=== PATIENT | female | born 1995 | race African-American/Black ===

== ENCOUNTER → 2023-05-05 10:43 | Outpatient (BNVA) | payer OTHER, SELFPAY | PROVIDERS: PCP Internal Medicine; Visit Provider Physician Assistant Surgical ==

== ENCOUNTER 2023-06-02 11:03 | Outpatient (REF) | payer OTHER, SELFPAY ==
[2023-06-07 12:42] LABS: H Pylori Breath Test Negative (Negative)
== END 2023-06-02 11:04 | disposition home or self-care (01) ==
LOC: HO.LNP 11:03
PROVIDERS: PCP Internal Medicine; Visit Provider Physician Assistant
DX: Z01.818 Encounter for other preprocedural examination (principal); E66.01 Morbid (severe) obesity due to excess calories; R06.83 Snoring; R40.0 Somnolence; Z71.3 Dietary counseling and surveillance
CPT/HCPCS: 83013; 99202; 99211

== ENCOUNTER 2023-06-02 11:03 | Outpatient (AMB) | payer OTHER, SELFPAY ==
[2023-06-02 11:05] VITALS: BP 133/75; PULSE 83; TEMP 35.9; O2SAT 98; BMI 61.8
--- NOTE | 2023-06-02 11:05 | A.OFFVIS_ITS ---
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 Her goal is to be healthy and happy. She reports first being concerned about her weight since teenage years, ETHAN 5 She has tried multiple methods of weight loss including diets and portion control without permanent results. She lives with her 3 childen. She works 3 days per week FT - 7pm - 7:30 am. 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 She wakes at: 6-7 am if not working, bed at 3am - only sleep 3-4 hours on these nights. Work nights - sleeps from 9am - 2pm - 5 hours sleep. Somedays doesnt sleep at all Breakfast: no regular meals until dinner time.12 pm- fruit and junk. water and cranberry juice Lunch: snacks throughout the day Dinner: has a meal 3 d/week. Kids eats at 5-7pm. Will eat 11pm - sandwich, noodles, sausage. After dinner: snacks during the night Other snacks: snacks all day long Liquids: Sprite sometimes, juice everyday Alcohol intake: every other weekend, drinks 2 d/week - will have 2 glasses wine during the week then 5 mixed drinks per day. tobacco: none, marijuana: once every few months Drinks coffee only on days at work - usually once per shift+ Exercise: none Last mammogram: never Last pap smear: 2022 control method: IUD ETHAN: 5 - not in therapy ESS: 16 GERD: 0 QOL:121 PFSH Surgical History (Updated 06/02/23 @ 11:27 by Niesha Harrison PA-C) Hx of section Hx of cholecystectomy Family History Mother No problems noted. Father Diabetes Sister No problems noted. Sister No problems noted. Brother Hx of sleep apnea Brother Hx of sleep apnea Diabetes Sister Diabetes Sister No problems noted. Sister No problems noted. Sister No problems noted. Sister No problems noted. Sister No problems noted. Daughter No problems noted. Daughter No problems noted. Son No problems noted. Social History (Updated 05/05/23 @ 11:09 by Adriana Romero [facility]) Alcohol intake: current Alcohol intake frequency: holidays/special occasions only Patient Tobacco Use Status: Never used Tobacco Physical Exam Const General: cooperative, no acute distress and well developed Nutritional Appearance: obese Orientation/consciousness: patient oriented x3 HEENT Head: Yes normal to inspection Neck Neck: Yes normal visual inspection Thyroid: Thyroid normal Resp Effort & Inspection: normal respiratory effort Auscultation: clear to auscultation bilaterally Cardio Rate: regular rate Rhythm: regular rhythm Heart sounds: S1 normal heart sound present, S2 normal heart sound present and no murmurs GI Inspection: No distended and Yes obesity Palpation (GI): Soft to palpation, nontender and no guarding Skin General skin exam: no rashes or lesions noted and other (warm and dry) Wounds: no wounds Hair: normal Neuro General: patient oriented x3 Extrem General: Yes no pedal edema and Yes no calf tenderness Psych Attitude: cooperative Thought process: Normal thought process present Thought content: Normal thought content present Insight: Good insight present (Psych) Judgement: Good judgement present (Psych) Assessment & Plan Assessment & Plan (1) Morbid obesity: Code(s): E66.01 - Morbid (severe) obesity due to excess calories Plan: This is a 27 yo woman with morbid obesity who will start SWL program to prepare for bariatric surgery. Blood work, h pylori have been ordered. She is being scheduled for RD and BH initial consultations. She will start SWL classes and watch at 3 classes before her next appt with Lara. Sleep Study ordered Patient is aware she will need to make many lifestyle changes befroe being ready for baritric surgery. 1. Adequate sleep of 7-8 hours per night discussed - is a MUST that she get adequate seep 2. Healthy meal plan - stop skipping meals and stop all sweetened drinks and snacks. Needs a regualr schedule and dinner with her children All meals/MR's need to take 20 minutes to complete 2 hours after waking - 30 gram shake 2.5 hours later- 30 gram shake 2.5 hours later bar or yogurt 2-3 hrs later- dinner of 6 oz lean protein, 8 oz vegetable, 1 serving fruit 3 hours later bar or yogurt Will change times of day depending on work or non work schedules. Exercise - LS 1 mile vidoes 5 non-consecutive days to start The importance of avoiding and breast feeding for at least 18 months after bariatric surgery was discussed in the information session and was reinforced today. Pt will purchase body composition analyzer (recommended list given to patient) and weight herself weekly. Next appt with me in 3 weeks. Text me with any questions and weekly weights. Patient is morbidly obese and is not considered stable at this time.?I spent a total of 60 minutes reviewing/updating records, examining the patient and counseling the patient on weight management as detailed above. (2) Snoring: Code(s): R06.83 - Snoring (3) Daytime somnolence: Code(s): R40.0 - Somnolence Plan: SS ordered, ESS =16 Orders: Orders Vitamin B12 and Folate Today E66.01 - Morbid (severe) obesity due to excess calories, R06.83 - Snoring, R40.0 - Somnolence, Z01.818 - Encounter for other preprocedural examination Comprehensive Met. Panel Today E66.01 - Morbid (severe) obesity due to excess calories, R06.83 - Snoring, R40.0 - Somnolence, Z01.818 - Encounter for other preprocedural examination C Reactive Protein Today E66.01 - Morbid (severe) obesity due to excess calories, R06.83 - Snoring, R40.0 - Somnolence, Z01.818 - Encounter for other preprocedural examination Ferritin Today E66.01 - Morbid (severe) obesity due to excess calories, R06.83 - Snoring, R40.0 - Somnolence, Z01.818 - Encounter for other preprocedural examination Hemoglobin A1c Today E66.01 - Morbid (severe) obesity due to excess calories, R06.83 - Snoring, R40.0 - Somnolence, Z01.818 - Encounter for other preprocedural examination Insulin Today E66.01 - Morbid (severe) obesity due to excess calories, R06.83 - Snoring, R40.0 - Somnolence, Z01.818 - Encounter for other preprocedural examination IRON PROFILE Today E66.01 - Morbid (severe) obesity due to excess calories, R06.83 - Snoring, R40.0 - Somnolence, Z01.818 - Encounter for other preprocedural examination Lipid Panel Today E66.01 - Morbid (severe) obesity due to excess calories, R06.83 - Snoring, R40.0 - Somnolence, Z01.818 - Encounter for other preprocedural examination PTHI Today E66.01 - Morbid (severe) obesity due to excess calories, R06.83 - Snoring, R40.0 - Somnolence, Z01.818 - Encounter for other preprocedural examination TSH reflex Free T4 Today E66.01 - Morbid (severe) obesity due to excess calor ies, R06.83 - Snoring, R40.0 - Somnolence, Z01.818 - Encounter for other preprocedural examination Vitamin A Today E66.01 - Morbid (severe) obesity due to excess calories, R06.83 - Snoring, R40.0 - Somnolence, Z01.818 - Encounter for other preprocedural examination Vitamin B1 Today E66.01 - Morbid (severe) obesity due to excess calories, R06.83 - Snoring, R40.0 - Somnolence, Z01.818 - Encounter for other preprocedural examination Vitamin D 25-OH Total Today E66.01 - Morbid (severe) obesity due to excess calories, R06.83 - Snoring, R40.0 - Somnolence, Z01.818 - Encounter for other preprocedural examination Zinc Today E66.01 - Morbid (severe) obesity due to excess calories, R06.83 - Sn oring, R40.0 - Somnolence, Z01.818 - Encounter for other preprocedural examination Complete Blood Count Auto Diff Today E66.01 - Morbid (severe) obesity due to excess calories, R06.83 - Snoring, R40.0 - Somnolence, Z01.818 - Encounter for other preprocedural examination RT home sleep study Today E66.01 - Morbid (severe) obesity due to excess ca lories, R06.83 - Snoring, R40.0 - Somnolence, Z01.818 - Encounter for other preprocedural examination H Pylori Breath Test Today E66.01 - Morbid (severe) obesity due to excess calories, R06.83 - Snoring, R40.0 - Somnolence, Z01.818 - Encounter for other preprocedural examination Referrals Behavioral Health Referral E66.01 - Morbid (severe) obesity due to excess calories, R06.83 - Snoring, R40.0 - Somnolence, Z01.818 - Encounter for other preprocedural examination Nutrition/Dietitian Referral E66.01 - Morbid (severe) obesity due to excess calories, R06.83 - Snoring, R40.0 - Somnolence, Z01.818 - Encounter for other preprocedural examination Coding Level of Care Code New Pt Level 5 (30834) Diagnoses Morbid obesity E66.01 Snoring R06.83 Daytime somnolence R40.0
== END 2023-06-02 12:05 | disposition home or self-care (01) ==
PROVIDERS: PCP Internal Medicine; Visit Provider Physician Assistant
DX: E66.01 Morbid (severe) obesity due to excess calories (principal); Z68.44 Body mass index [BMI] 60.0-69.9, adult; R06.83 Snoring; R40.0 Somnolence
CPT/HCPCS: 99205

== ENCOUNTER → 2023-07-08 15:02 | Outpatient (REF) | payer OTHER, SELFPAY | LOC: HO.SL 15:02 | PROVIDERS: PCP Internal Medicine; Visit Provider Physician Assistant | DX: Z01.818 Encounter for other preprocedural examination (principal); R40.0 Somnolence; R06.83 Snoring; E66.01 Morbid (severe) obesity due to excess calories | CPT/HCPCS: 95806 ==

== ENCOUNTER → 2023-07-08 15:12 | Outpatient (BNV) | payer OTHER, SELFPAY | PROVIDERS: PCP Internal Medicine; Visit Provider Internal Medicine | DX: R06.83 Snoring (principal) | CPT/HCPCS: 95806 ==

== ENCOUNTER 2023-07-29 08:04 | Outpatient (AMB) | payer OTHER, SELFPAY ==
--- OUTSIDE RECORDS SUMMARY | 2023-07-29 08:06 | XMS_ITS | Continuity of Care Document ---
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 Name Role Phone Betina Pena MD Primary Care Physician Encounter [facility] [place] Date(s): 10/23/21 - 10/23/[address] [address]- Encounter Diagnosis Influenza A(Final) - 10/23/21 Discharge Disposition: A-D/C Home Attending Physician: Bryan Galindo MD Admitting Physician: Bryan Galindo MD Referring Physician: Not on Staff, Referring MD Allergies, Adverse Reactions, Alerts Substance Reaction Severity Status oxyCODONE Headache Nausea and vomiting Active Immunizations Given and Recorded Vaccine Date Status Refusal Reason tetanus/diphtheria/pertussis, acel(Tdap) 10/18/21 Given tetanus/diphtheria/pertussis, acel(Tdap) 10/25/19 Given tetanus/diphtheria/pertussis, acel(Tdap) 1 08/04/18 Given influenza virus vaccine, inactivated 12/09/19 Give n Not Given Vaccine Date Status Refusal Reason influenza virus vaccine, inactivated 08/28/18 Not Given Parent Or Guardian Refuses pneumococcal 23-valent vaccine 10/30/19 Not Given Patient Refuses 1Early/Late Reason: Other : pt preference Medications aspirin 81 mg oral tablet, chewable 162 mg, 2, tablet, Chew, Daily, # 60 tablet, Refills 6, Tot. Refills 6, Maintenance, 09/06/21 8:52:00 EDT, Route to Pharmacy Electronically, [facility]/pharmacy #[id number], Partial fill upon patient request if the prescription is for a schedule II opioid drug., 1... Start Date: 09/06/21 Status: Ordered aspirin 81 mg oral tablet, chewable 81 mg, 1, tablet, By Mouth, Daily, # 30 tablet, Refills 0, Tot. Refills 0, Maintenance, 08/13/21 9:23:00 EDT, Route to Pharmacy Electronically, [facility]/pharmacy #[id number], Partial fill upon patient request if the prescription is for a schedule II opioid drug.... Start Date: 08/13/21 Status: Ordered ferrous sulfate 325 mg oral tablet 1 tablet = 325 mg, By Mouth, 2 times a day, # 60 tablet, 0 Refills, Maintenance, 12/23/19 14:30:00 EST, [facility]/pharmacy #[id number], 158, cm, 12/23/19 9:36:00 EST, Height, 127.27, kg, 12/19/19 16:32:00 EST, Dry Weight Start Date: 12/23/19 Status: Ordered oseltamivir 75 mg oral capsule 1 capsule = 75 mg, By Mouth, Daily, for 5 days, # 5 capsule, 0 Refills, Acute 10/28/21 21:03:00 EST, 10/23/21 21:03:00 EST, Capsule, [facility]/pharmacy #[id number], Partial fill upon patient request if the prescription is for a schedule II opioid drug., 158, cm,... Start Date: 10/23/21 Stop Date: 10/28/21 Status: Ordered Multivitamins with Folic Acid 1 mg oral tablet 1 tablet, By Mouth, Daily, # 90 tablet, 3 Refills, Maintenance, 10/25/19 18:14:18 EST, Tablet, 1 tablet By Mouth Daily,x90 days, 157, cm, 10/25/19 15:12:06 EST, Height, 121.8, kg, 08/04/18 16:43:39 EDT, Dry Weight Start Date: 10/25/19 Stop Date: 10/19/20 Status: Ordered Reglan 5 mg oral tablet 1 tablet = 5 mg, By Mouth, 4 times a day, PRN Vomiting, # 40 tablet, 0 Refills, Maintenance, 08/22/21 16:18:00 EDT, Tablet, [facility]/pharmacy #[id number], Partial fill upon patient request if the prescription is for a schedule II opioid drug., 158, cm, 08/22/21... Start Date: 08/22/21 Status: Ordered Problem List Condition Effective Dates Status Health Status Inform ant Asthma --as a chiild(Confirmed) Active History of prior w ith IUGR (Confirmed) Active History of delivery - iatrogenic for IUGR/abnormal dopplers(Confirmed) Active History of gestational hypertension(Confirmed) Active Flu-- She declines this vaccine(Confirmed) Active Migraine(Confirmed) Active Obesity(Confirmed) Active COVID-19 virus detected Jul(Confirmed) Active Severe obesity(Confirmed) Active Results Radiology Reports * Exam Date Time Procedure Performing Provider Status 10/23/21 5:47 PM Chest 2 Views Frontal and Lat Desrosie r, Virgen; Auth (Verified) Notes: (Chest 2 Views Frontal and Lat) Reason For Exam: Chest Pain;Other: RESULT: Chest 2 Views Frontal and Lat Chest 2 Views Frontal and Lat HX OF PRESENT ILLNESS: pt woth headache congestion generalized weakness pt states that she feels like she has covid again; Reason: Chest Pain COMPARISON: 12/21/2019 FINDINGS: LINES AND TUBES: None. LUNGS AND PLEURA: Clear lungs. Normal pulmonary vascularity. No pleural effusion. No pneumothorax. HEART, MEDIASTINUM AND BELGICA: Heart is normal in size. Normal mediastinal and hilar contour. BONES AND SOFT TISSUES: No acute abnormality. IMPRESSION: No evidence of acute abnormality. WSN: [id number] Ordering Physician: Nicky Newberry Dictated By: Edgar Crisostomo MD Dictated Date/Time: 10/23/21 5:49 pm Reviewed By: Edgar Crisostomo MD Signed By: Edgar Crisostomo MD Signed Date/Time: 10/23/21 5:49 pm Transcribed By: REID Transcribed Date/Time: 10/23/21 5:48 pm Vital Signs Most recent to oldest [Reference Range]: 1 2 3 Height 158 cm (10/23/21 11:28 PM) 158 cm (10/23/21 7:14 PM) Weight 132.72 kg (10/23/21 11:28 PM) 132.72 kg (10/23/21 7:14 PM) Oxygen Saturation [94-100 %] 99 % (10/23/21 11:28 PM) 97 % (10/23/21 8:55 PM) 97 % (10/23/21 7:14 PM) Pulse Rate [55-90 bpm] 99 bpm *H* (10/23/21 11:28 PM) 118 bpm *H* (10/23/21 8:55 PM) 121 bpm *H* (10/23/21 7:14 PM) Blood Pressure [90-138/55-84 mm Hg] 124/72mm Hg (10/23/21 11:28 PM) 126/78mm Hg (10/23/21 8:55 PM) 117/69mm Hg (10/23/21 7:14 PM) Respiratory Rate [16-30 br/min] 18 br/min (10/23/21 11:28 PM) 20 br/min (10/23/21 8:55 PM) 22 br/min (10/23/21 7:14 PM) Temperature [96.8-100.4 DegF] 98.3 DegF (10/23/21 11:28 PM) 99.3 DegF (10/23/21 7:14 PM) 99.3 DegF (10/23/21 5:36 PM) Mode of Delivery (Oxygen) Room air (10/23/21 11:28 PM) Room air (10/23/21 8:55 PM) Room air (10/23/21 7:14 PM) Blood pressure sites Arm, left (10/23/21 8:55 PM) Arm, left (10/23/21 7:14 PM) Temperature Route Axillary (10/23/21 11:28 PM) Oral (10/23/21 7:14 PM) Oral (10/23/21 5:36 PM) Dry Weight 132.72 kg (10/23/21 11:28 PM) 132.72 kg (10/23/21 7:14 PM) Social History Social History Type Response Smoking Status Never (less than 100 in lifetime) entered on: 08/31/19 Sex Female
--- OUTSIDE RECORDS SUMMARY | 2023-07-29 08:06 | XMS_ITS | Continuity of Care Document ---
Author Name Unknown Organization [facility] Address [address] [place] [address]- Care Team Providers Care Manager Communication Name Role Phone Becky MARSH, Betina Johnson Primary Care Physician Encounter [facility] [place] Date(s): 04/13/20 - 05/13/[address] [address]- [facility] Attending Physician: Admtr, Ar8 Admitting Physician: Admtr, Ar8 Referring Physician: Admtr, Ar8 Allergies, Adverse Reactions, Alerts Substance Reaction Severity Status oxyCODONE Headache Nausea and vomiting Active Immunizations Given and Recorded Vaccine Date Status Refusal Reason influenza virus vaccine, inactivated 12/09/19 Give n tetanus/diphtheria/pertussis, acel(Tdap) 10/25/19 Given tetanus/diphtheria/pertussis, acel(Tdap) 1 08/04/18 Given Not Given Vaccine Date Status Refusal Reason influenza virus vaccine, inactivated 08/28/18 Not Given Parent Or Guardian Refuses pneumococcal 23-valent vaccine 10/30/19 Not Given Patient Refuses 1Early/Late Reason: Other : pt preference Medications ferrous sulfate 325 mg oral tablet 1 tablet = 325 mg, By Mouth, 2 times a day, # 60 tablet, 0 Refills, Maintenance, 12/23/19 14:30:00 EST, [facility]pharm[facility] #[id number], 158, cm, 12/23/19 9:36:00 EST, Height, 127.27, kg, 12/19/19 16:32:00 EST, Dry Weight Start Date: 12/23/19 Status: Ordered NIFEdipine 30 mg oral tablet, extended release 30 mg, 1, tablet, By Mouth, Daily, # 60 tablet, Refills 0, Tot. Refills 0, Maintenance, 12/23/19 10:46:00 EST, Route to Pharmacy Electronically, [facility]/pharmacy #[id number], 158, cm, 12/23/19 9:36:00 EST, Height, 127.27, kg, 12/19/19 16:32:00 EST, Dry Weight Start Date: 12/23/19 Status: Ordered Multivitamins with Folic Acid 1 mg oral tablet 1 tablet, By Mouth, Daily, # 90 tablet, 3 Refills, Maintenance, 10/25/19 18:14:18 EST, Tablet, 1 tablet By Mouth Daily,x90 days, 157, cm, 10/25/19 15:12:06 EST, Height, 121.8, kg, 08/04/18 16:43:39 EDT, Dry Weight Start Date: 10/25/19 Stop Date: 10/19/20 Status: Ordered Problem List Condition Effective Dates Status Health Status Inform ant Asthma(Confirmed) Active History of prior w ith IUGR (Confirmed) Active History of delivery - iatrogenic for IUGR/abnormal dopplers(Confirmed) Active History of gestational hypertension(Confirmed) Active Flu-- She declines this vaccine(Confirmed) Active Migraine(Confirmed) Active Obesity(Confirmed) Active Social History Social History Type Response Smoking Status Never (less than 100 in lifetime) entered on: 08/31/19 Sex Female
--- OUTSIDE RECORDS SUMMARY | 2023-07-29 08:06 | XMS_ITS | Continuity of Care Document ---
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 Role Phone Betina Pena MD Primary Care Physician Encounter [place] Date(s): 10/31/21 - 02/15/[address] [address] Attending Physician: Not on Staff, Attending MD Allergies, Adverse Reactions, Alerts Substance Reaction Severity Status oxyCODONE Headache Nausea and vomiting Active Immunizations Given and Recorded Vaccine Date Status Refusal Reason SARS-CoV-2 mRNA ([id number]) vax 01/13/22 Given tetanus/diphtheria/pertussis, acel(Tdap) 10/18/21 Given tetanus/diphtheria/pertussis, acel(Tdap) 10/25/19 [...] 09/06/21 8:52:00 EDT, Route to Pharmacy Electronically, [facility]/pharmacy #[id number], Partial fill upon patient request if the prescription is for a schedule II opioid drug., 1... Start Date: 10/15/21 Status: Ordered clindamycin 1% topical solution 1 application, Topically, 2 times a day, # 60 mL, 0 Refills, Maintenance, 01/07/22 14:35:00 EST, Solution, [facility]/pharmacy #[id number], Partial fill upon patient request if the prescription is for a schedule II opioid drug., 1 application Topically 2 times a d... Start Date: 01/07/22 Status: Ordered ferrous sulfate 325 mg oral [...] Asthma --as a chiild(Confirmed) Active History of section(Confirmed) Active History of prior w ith IUGR (Confirmed) Active History of delivery - iatrogenic for IUGR/abnormal dopplers(Confirmed) Active History of gestational hypertension(Confirmed) Active History of pre-eclampsia in prior , currently (Confirmed) Active History of COVID-19(Confirmed) Active Migraine(Confirmed) Active Obesity(Confirmed) Active Pre-eclampsia added to pre-e xisting hypertension(Confirmed) 1 01/10/22 Active HTN in , chronic(Confirmed) Active Severe obesity(Confirmed) Active 1Problem added by Discern Expert Social History Social History Type Response Smoking Status Never (less than 100 in lifetime) entered on: 08/31/19 Sex Female
--- OUTSIDE RECORDS SUMMARY | 2023-07-29 08:06 | XMS_ITS | Continuity of Care Document ---
Author Name Unknown Organization [facility] Address [address] [place] [address]- Care Team Providers Care Insurance Policy Issue Clerk Name Role Phone Betina Pena MD Primary Care Physician Encounter [facility] Date(s): 01/04/20 - 01/14/[address] [address]- [facility] Attending Physician: Artem Sparks Admitting Physician: Artem Sparks Referring Physician: AdmtrArtem Allergies, Adverse Reactions, Alerts Substance Reaction Severity [...] 12/23/19 10:46:00 EST, Route to Pharmacy Electronically, [facility]/pharmacy #[id number], 158, cm, 12/23/19 9:36:00 EST, [...] Status Health Status Inform ant Asthma(Confirmed) Active Echogenic focus of bowel of fetus affecting antepartum care of mother(Confirmed) Active IUGR, (Confirmed) Active History of prior w ith IUGR (Confirmed) Active History of delivery - iatrogenic for IUGR/abnormal dopplers(Confirmed) Active History of gestational hypertension(Confirmed) Active Gestational hypertension(Confirmed) Active Flu-- She declines this vaccine(Confirmed) Active Migraine(Confirmed) Active Obesity(Confirmed) Active Social History Social History Type Response Smoking Status Never (less than 100 in lifetime) entered on: 08/31/19 Sex Female
--- OUTSIDE RECORDS SUMMARY | 2023-07-29 08:06 | XMS_ITS | Continuity of Care Document ---
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 Role Phone Betina Pena MD Primary Care Physician Encounter [facility] [place] [place] Date(s): 11/29/21 - 11/29/[address] [address] Discharge Disposition: A-D/C Home Attending Physician: Gerardo Hanson DO Admitting Physician: Gerardo Hanson DO Referring Physician: Nicolette May CNM Allergies, Adverse Reactions, Alerts Substance Reaction Severity [...] 09/06/21 8:52:00 EDT, Route to Pharmacy Electronically, [facility]/pharmacy #[id number], Partial fill upon patient request if the prescription is for a schedule II opioid drug., 1... Start Date: 09/06/21 Status: Ordered aspirin 81 mg oral tablet, chewable 81 mg, 1, tablet, By Mouth, Daily, # 30 tablet, Refills 0, Tot. Refills 0, Maintenance, 08/13/21 9:23:00 EDT, Route to Pharmacy Electronically, [facility]/pharmacy #[id number], Partial fill upon patient request if [...] 0 Refills, Maintenance, 08/22/21 16:18:00 EDT, Tablet, [id number], Partial fill upon patient request if [...] virus detected Jul(Confirmed) Active Severe obesity(Confirmed) Active Social History Social History Type Response Smoking Status Never (less than 100 in lifetime) entered on: 08/31/19 Sex Female
--- OUTSIDE RECORDS SUMMARY | 2023-07-29 08:06 | XMS_ITS | Continuity of Care Document ---
Author Name Unknown Organization [facility] ter Address [address] [place] [phone]- Care Team Providers Care Medical Staff Services Manager Name Role Phone Betina Pena MD Primary Care Physician Encounter [facility] Date(s): 01/10/22 - 01/13/[address] [address] Discharge Disposition: A-D/C Home Attending Physician: Zainab Rice MD Admitting Physician: Zainab Rice MD Referring Physician: Vernon MARSH, Shannon Adams Allergies, Adverse Reactions, Alerts Substance Reaction Severity Status oxyCODONE Headache Nausea and vomiting Active Immunizations Given and Recorded Vaccine Date Status Refusal Reason SARS-CoV-2 mRNA (jthdsed-here-nwmus) vax 01/13/22 Given tetanus/diphtheria/pertussis, acel(Tdap) 10/18/21 Given tetanus/diphtheria/pertussis, acel(Tdap) 10/25/19 Given tetanus/diphtheria/pertussis, acel(Tdap) 1 08/04/18 Given influenza virus vaccine, inactivated 12/09/19 Give n Not Given Vaccine Date Status Refusal Reason influenza virus vaccine, inactivated 08/28/18 Not Given Parent Or Guardian Refuses pneumococcal 23-valent vaccine 10/30/19 Not Given Patient Refuses 1Early/Late Reason: Other : pt preference Medications Acetaminophen Tablet 650 mg, Tablet, By Mouth, Every 4 hours, PRN for Pain , Mild, (1-3), may give 325mg per patient preference and re-dose with 325mg within 4 hours, if needed. Patient should only receive a total of 650mg of Acetaminophen every 4 hours., Routine, 01/11... Start Date: 01/11/22 Stop Date: 02/10/22 Status: Ordered aspirin 81 mg oral tablet, chewable 162 mg, 2, tablet, Chew, Daily, # 60 tablet, Refills 6, Tot. Refills 6, Maintenance, 09/06/21 8:52:00 EDT, [id number] Partial fill upon patient request if the prescription is for a schedule II opioid drug., 1... Start Date: 09/06/21 Status: Ordered clindamycin 1% topical solution 1 application, Topically, 2 times a day, # 60 mL, 0 Refills, Maintenance, 01/07/22 14:35:00 EST, Solution, [facility]/pharmacy #[id number], Partial fill upon patient request if the prescription is for a schedule II opioid drug., 1 application Topically 2 times a d... Start Date: 01/07/22 Status: Ordered ferrous sulfate 325 mg oral tablet 1 tablet = 325 mg, By Mouth, 2 times a day, # 60 tablet, 0 Refills, Maintenance, 12/23/19 14:30:00 EST, [facility]/pharmacy #[id number], 158, cm, 12/23/19 9:36:00 EST, Height, 127.27, kg, 12/19/19 16:32:00 EST, Dry Weight Start Date: 12/23/19 Status: Ordered Ibuprofen Tablet 800 mg, Tablet, By Mouth, Every 8 hours, PRN for Pain , Moderate, (4-6), may give 400mg per patientpreference and re-dose with 400mg within 8 hours if needed. Patient should only receive a total of 800mg of Ibuprofen every 8 hours., Routine, ... Start Date: 01/11/22 Stop Date: 01/25/22 Status: Ordered Multivitamins with Folic Acid 1 [...] obesity(Confirmed) Active 1Problem added by Discern Expert Vital Signs Most recent to oldest [Reference Range]: 1 2 3 4 Height 157 cm (01/13/22 8:30 AM) 157 cm (01/13/22 12:00 AM) 157 cm (01/12/22 3:50 PM) Weight 121.56 kg (01/10/22 1:29 PM) 129 kg (01/10/22 8:42 AM) Oxygen Saturation [94-100 %] 100 % (01/13/22 12:00 AM) 97 % (01/12/22 3:50 PM) 97 % (01/12/22 9:15 AM) Pulse Rate [55-90 bpm] 72 bpm (01/13/22 8:30 AM) 84 bpm (01/13/22 12:00 AM) 89 bpm (01/12/22 3:50 PM) Body Mass Index [18.5-24.99] 52.33 *>HHI* (01/10/22 8:42 AM) Blood Pressure [90-138/55-84 mm Hg] 124/81mm Hg (01/13/22 8:30 AM) 135/75mm Hg (01/13/22 12:00 AM) 131/81mm Hg (01/12/22 3:50 PM) Respiratory Rate [16-30 br/min] 17 br/min (01/13/22 8:30 AM) 18 br/min (01/13/22 12:00 AM) 20 br/min (01/12/22 5:31 PM) 20 br/min (01/12/22 5:31 PM) Temperature [96.8-100.4 DegF] 97.6 DegF (01/13/22 8:30 AM) 97.8 DegF (01/13/22 12:00 AM) 97.8 DegF (01/12/22 3:50 PM) Mode of Delivery (Oxygen) Room air (01/13/22 12:00 AM) Room air (01/12/22 3:50 PM) Room air (01/12/22 9:15 AM) Blood pressure sites Arm, right (01/13/22 8:30 AM) Arm, right (01/12/22 3:50 PM) Arm, right (01/12/22 9:15 AM) Temperature Route Oral (01/13/22 8:30 AM) Oral (01/13/22 12:00 AM) Oral (01/12/22 3:50 PM) Dry Weight 129 kg (01/10/22 8:42 AM) Weight Obtained Via Patient/family stated (01/10/22 1:29 PM) Social History Social History Type Response Smoking Status Never (less than 100 in lifetime) entered on: 08/31/19 Sex Female
--- OUTSIDE RECORDS SUMMARY | 2023-07-29 08:06 | XMS_ITS | Continuity of Care Document ---
Author Name Unknown Organization [facility] ter Address [address] [place] [address]- Care Team Providers Care Flight Test Mechanic Name Role Phone Betina Pena MD Primary Care Physician Encounter [facility] Date(s): 06/30/21 - 07/01/[address] [address]- Encounter Diagnosis Headache(Final) - 07/01/21 Discharge Disposition: A-D/C Home Attending Physician: Nikita Sanchez MD Admitting Physician: Nikita Sanchez MD Referring Physician: Not on Staff, Referring [...] tablet, 0 Refills, Maintenance, 12/23/19 14:30:00 EST, [facility]/pharmacy #[id number], 158, cm, 12/23/19 9:36:00 EST, Height, 127.27, kg, 12/19/19 16:32:00 EST, Dry Weight Start Date: 12/23/19 Status: Ordered NIFEdipine 30 mg oral tablet, extended release 30 mg, 1, tablet, By Mouth, Daily, # 60 tablet, Refills 0, Tot. Refills 0, Maintenance, 12/23/19 10:46:00 EST, Route to Pharmacy Electronically, [facility]/pharmacy #[id number], 158, cm, 12/23/19 9:36:00 EST, [...] this vaccine(Confirmed) Active Migraine(Confirmed) Active Obesity(Confirmed) Active Vital Signs Most recent to oldest [Reference Range]: 1 2 3 Weight 145 kg (06/30/21 9:27 PM) Oxygen Saturation [94-100 %] 100 % (07/01/21 6:33 AM) 100 % (07/01/21 3:14 AM) 100 % (07/01/21 12:14 AM) Pulse Rate [55-90 bpm] 74 bpm (07/01/21 6:33 AM) 82 bpm (07/01/21 3:14 AM) 70 bpm (07/01/21 12:14 AM) Blood Pressure [90-138/55-84 mm Hg] 123/62mm Hg (07/01/21 6:33 AM) 139/76mm Hg *H* (07/01/21 3:14 AM) 100/52mm Hg (07/01/21 12:14 AM) Respiratory Rate [16-30 br/min] 20 br/min (07/01/21 6:33 AM) 16 br/min (07/01/21 3:14 AM) 16 br/min (07/01/21 12:14 AM) Temperature [96.8-100.4 DegF] 98.4 DegF (07/01/21 3:14 AM) 98.2 DegF (07/01/21 12:14 AM) 98.5 DegF (06/30/21 9:27 PM) Mode of Delivery (Oxygen) Room air (07/01/21 6:33 AM) Room air (07/01/21 3:14 AM) Room air (07/01/21 12:14 AM) Blood pressure sites Arm, right (07/01/21 6:33 AM) Arm, right (07/01/21 3:14 AM) Arm, right (07/01/21 12:14 AM) Temperature Route Oral (07/01/21 3:14 AM) Oral (07/01/21 12:14 AM) Oral (06/30/21 9:27 PM) Dry Weight 145 kg (06/30/21 9:27 PM) Social History Social History Type Response Smoking Status Never (less than 100 in lifetime) entered on: 08/31/19 Sex Female
--- OUTSIDE RECORDS SUMMARY | 2023-07-29 08:06 | XMS_ITS | Continuity of Care Document ---
Author Name Unknown Organization [facility] Address [address] [place] [address]- Care Team Providers Care Community Health Education Coordinator Name Role Phone Becky MARSH, Betina Johnson Primary Care Physician Encounter [facility] Date(s): 08/29/21 - 09/28/[address] [address]- Allergies, Adverse Reactions, Alerts Substance Reaction Severity [...] 09/06/21 8:52:00 EDT, Route to Pharmacy Electronically, [facility]/pharmacy #[id number], Partial fill upon patient request if the prescription is for a schedule II opioid drug., 1... Start Date: 09/06/21 Status: Ordered aspirin 81 mg oral tablet, chewable 81 mg, 1, tablet, By Mouth, Daily, # 30 tablet, Refills 0, Tot. Refills 0, Maintenance, 08/13/21 9:23:00 EDT, Route to Pharmacy Electronically, [facility]/pharmacy #[id number], Partial fill upon patient request [...] Obesity(Confirmed) Active COVID-19 virus detected Jul(Confirmed) Active Social History Social History Type Response Smoking Status Never (less than 100 in lifetime) entered on: 08/31/19 Sex Female
--- OUTSIDE RECORDS SUMMARY | 2023-07-29 08:06 | XMS_ITS | Continuity of Care Document ---
Author Name Unknown Organization [facility] ter Address [address] [place] [address]- Care Team Providers Care Onion Farmer Name Role Phone Betina Pena MD Primary Care Physician Encounter [facility] Date(s): 12/13/21 - 12/13/[address] [address] Discharge Disposition: A-D/C Home Attending Physician: Gerardo [...] 09/06/21 8:52:00 EDT, Route to Pharmacy Electronically, [facility]/pharmacy #[id number], Partial fill upon patient request if the prescription is for a schedule II opioid drug., 1... Start Date: 09/06/21 Status: Ordered aspirin 81 mg oral tablet, chewable 81 mg, 1, tablet, By Mouth, Daily, # 30 tablet, Refills 0, Tot. Refills 0, Maintenance, 08/13/21 9:23:00 EDT, Route to Pharmacy Electronically, [facility]/pharmacy #[id number], Partial fill upon patient request [...]
--- OUTSIDE RECORDS SUMMARY | 2023-07-29 08:06 | XMS_ITS | Continuity of Care Document ---
Author Name Unknown Organization [facility] ter Address [address] [place] [address]- Care Team Providers Care Freight Flow Sales Leader Name Role Phone Betina Pena MD Primary Care Physician Encounter [facility] Date(s): 01/03/22 - 01/03/[address] [address] Discharge Disposition: A-D/C Home Attending Physician: Gerardo [...] 8:52:00 EDT, Route to Pharmacy Electronically, [facility]/pharmacy #[id number], Partial fill upon patient request if the prescription is for a schedule II opioid drug., 1... Start Date: 09/06/21 Status: Ordered ferrous sulfate 325 mg oral [...]
--- OUTSIDE RECORDS SUMMARY | 2023-07-29 08:06 | XMS_ITS | Continuity of Care Document ---
Author Name Unknown Organization [facility] ter Address [address] [place] [address]- Care Team Providers Care Peer Specialist Name Role Phone Betina Pena MD Primary Care Physician Encounter [facility] Date(s): 12/19/19 - 12/23/[address] [address] [facility] Discharge Disposition: A-D/C Home Attending Physician: Zainab Rice MD Admitting Physician: Zainab Rice MD Referring Physician: Zainab Rice MD Allergies, Adverse Reactions, Alerts Substance Reaction [...] 1Early/Late Reason: Other : pt preference Medications acetaminophen 325 mg oral tablet 650 mg, By Mouth, Every 4 hours, (1-3), may give 325mg per patient preference and re-dose with 325mg within 4 hours, if needed. Patient should only receive a total of 650mg of Acetaminophen every 4 hours., Refills 0, Maintenance, 12/23/19 10:50:00 EST Start Date: 12/23/19 Status: Ordered Colace sodium 100 mg oral capsule 100 mg, 1, capsule, By Mouth, Daily, PRN, # 14 capsule, Refills 0, Tot. Refills 0, Maintenance, forconstipation, 11/05/19 12:04:39 EST, Print Requisition Start Date: 11/05/19 Stop Date: 11/19/19 Status: Ordered docusate-senna 50 mg-187 mg oral tablet 1 tablet, By Mouth, Daily at bedtime, # 60 tablet, 0 Refills, Maintenance, 12/23/19 14:31:00 EST, Tablet, [facility]/pharmacy #[id number], 1 tablet By Mouth Daily at bedtime, 158, cm, 12/23/19 9:36:00 EST, Height, 127.27, kg, 12/19/19 16:32:00 EST, Dry Weight Start Date: 12/23/19 Status: Ordered ferrous sulfate 325 mg oral tablet 1 tablet = 325 mg, By Mouth, 2 times a day, # 60 tablet, 0 Refills, Maintenance, 12/23/19 14:30:00 EST, [facility]/pharmacy #[id number], 158, cm, 12/23/19 9:36:00 EST, Height, 127.27, kg, 12/19/19 16:32:00 EST, Dry Weight Start Date: 12/23/19 Status: Ordered ibuprofen 800 mg oral tablet 800 mg, 1, tablet, By Mouth, Every 8 hours, (4-6), may give 400mg per patient preference and re-dose with 400mg within 8 hours, if needed. Patient should only receive a total of 800mg of Ibuprofen every 8 hours., Refills 0, Maintenance, 12/23/19 10:... Start Date: 12/23/19 Status: Ordered NIFEdipine 30 mg oral tablet, extended release 30 mg, 1, tablet, By Mouth, Daily, # 60 tablet, Refills 0, Tot. Refills 0, Maintenance, 12/23/19 10:46:00 EST, Route to Pharmacy Electronically, [facility]/pharmacy #[id number], 158, cm, 12/23/19 9:36:00 EST, Height, [...] this vaccine(Confirmed) Active Migraine(Confirmed) Active Obesity(Confirmed) Active (Confirmed) Active Procedures Procedure Date Related Diagnosis Body Site Status delivery only; 12/19/19 C ompleted Cholecystectomy; Complete d Results Radiology Reports * Exam Date Time Procedure Performing Provider Status 12/21/19 2:01 AM Chest 2 Views Frontal and Lat Sarath Kelly; Lui (Verified) Notes: (Chest 2 Views Frontal and Lat) Reason For Exam: Shortness of Breath RESULT: Chest 2 Views Frontal and Lat Chest 2 Views Frontal and Lat INDICATION: Shortness of breath. COMPARISON: None. FINDINGS: LINES AND TUBES: None. LUNGS AND PLEURA: There is a basilar airspace opacity seen on the lateral view. No pulmonary edema. No pleural effusion or pneumothorax. HEART, MEDIASTINUM AND BELGICA: Heart is normal in size. Normal mediastinal and hilar contour. BONES AND SOFT TISSUES: No acute abnormality. IMPRESSION: Airspace opacity seen in the lateral view, which may be retrocardiac or at the right lung base, which may represent atelectasis or pneumonia depending upon the clinical setting. I have personally reviewed the images and I agree with this report. WSN: [id number] Dictated By: Jimenez Marroquin MD Dictated Date/Time: 12/21/19 8:27 am Reviewed By: Tavo Gutierrez MD Signed By: Tavo Gutierrez MD Signed Date/Time: 12/21/19 8:32 am Transcribed By: REID Transcribed Date/Time: 12/21/19 7:55 am Vital Signs Most recent to oldest [Reference Range]: 1 2 3 Height 158 cm (1/31/20 9:36 AM) 158 cm (12/22/19 9:45 AM) 158 cm (12/21/19 8:44 AM) Weight 127.27 kg (12/19/19 4:32 PM) 131.3 kg (12/19/19 3:18 PM) Oxygen Saturation [94-100 %] 99 % (12/23/19 6:19 AM) 100 % (12/23/19 3:08 AM) 100 % (12/22/19 11:43 PM) Pulse Rate [55-90 bpm] 100 bpm *H* (12/23/19 12:00 PM) 107 bpm *H* (12/23/19 9:36 AM) 106 bpm *H* (12/22/19 9:45 AM) Body Mass Index [18.5-24.99] 50.98 *>HHI* (12/19/19 4:32 PM) Blood Pressure [90-138/55-84 mm Hg] 144/98mm Hg *H* (12/23/19 12:00 PM) 125/73mm Hg (12/23/19 9:36 AM) 120/94mm Hg (12/23/19 6:19 AM) Respiratory Rate [16-30 br/min] 18 br/min (12/23/19 12:00 PM) 18 br/min (12/23/19 9:36 AM) 16 br/min (12/23/19 6:19 AM) Temperature [96.8-100.4 DegF] 98 DegF (12/23/19 12:00 PM) 97.9 DegF (12/23/19 9:36 AM) 98.2 DegF (12/23/19 6:19 AM) Mode of Delivery (Oxygen) Room air (12/20/19 11:08 PM) Room air (12/20/19 9:34 PM) Room air (12/20/19 5:26 PM) Blood pressure sites Arm, right (12/23/19 6:19 AM) Arm, right (12/23/19 3:08 AM) Arm, right (12/22/19 11:43 PM) Temperature Route Oral (12/23/19 9:36 AM) Oral (12/23/19 6:19 AM) Oral (12/23/19 3:08 AM) Dry Weight 127.27 kg (12/19/19 4:32 PM) Weight Obtained Via Standing scale (12/19/19 3:18 PM) Sensory deficits None (12/19/19 4:32 PM) Mobility assistance Independent (12/19/19 4:32 PM) Social History Social History Type Response Smoking Status Never (less than 100 in lifetime) entered on: 08/31/19 Sex Female
--- OUTSIDE RECORDS SUMMARY | 2023-07-29 08:06 | XMS_ITS | Continuity of Care Document ---
Author Name Unknown Organization [facility] Address [address] [place] [address] [address] [place] [address]- Care Team Providers Care Garage Supervisor Name Role Phone Betina Pena MD Primary Care Physician Encounter [facility] Date(s): 11/21/19 - 11/28/[address] [place] [address]- [facility] Attending Physician: Roberto Hart MD Allergies, Adverse Reactions, Alerts Substance Reaction Severity Status oxyCODONE Headache Nausea and vomiting Active Immunizations Given and Recorded Vaccine Date Status Refusal Reason tetanus/diphtheria/pertussis, acel(Tdap) 10/25/19 Given tetanus/diphtheria/pertussis, acel(Tdap) 1 08/04/18 Given Not Given Vaccine Date Status Refusal Reason pneumococcal 23-valent vaccine 10/30/19 Not Given Patient Refuses influenza virus vaccine, inactivated 08/28/18 Not Given Parent Or Guardian Refuses 1Early/Late Reason: Other : pt preference Medications Colace sodium 100 mg oral capsule 100 mg, 1, capsule, By Mouth, Daily, PRN, # 14 capsule, Refills 0, Tot. Refills 0, Maintenance, forconstipation, 11/05/19 12:04:39 EST, Print Requisition Start Date: 11/05/19 Stop Date: 11/19/19 Status: Ordered Multivitamins with Folic Acid 1 [...] fetus affecting antepartum care of mother(Confirmed) Active History of prior w ith IUGR (Confirmed) Active History of delivery - iatrogenic for IUGR/abnormal dopplers(Confirmed) Active History of gestational hypertension(Confirmed) Active Flu-- She declines this vaccine(Confirmed) Active Migraine(Confirmed) Active Obesity(Confirmed) Active (Confirmed) Active Vital Signs Most recent to oldest [Reference Range]: 1 Height 157 cm (11/21/19 9:40 AM) Weight 127.9 kg (11/21/19 9:40 AM) Pulse Rate [55-90 bpm] 89 bpm (11/21/19 9:40 AM) Body Mass Index [18.5-24.99] 51.89 *>HHI* (11/21/19 9:40 AM) Blood Pressure [90-138/55-84 mm Hg] 131/ 105mm Hg (11/21/19 9:40 AM) Temperature [96.8-100.4 DegF] 97.6 DegF (11/21/19 9:40 AM) Blood pressure sites Arm, left (11/21/19 9:40 AM) Temperature Route Temporal (11/21/19 9:40 AM) Social History Social History Type Response Smoking Status Never (less than 100 in lifetime) entered on: 08/31/19 Sex Female
--- OUTSIDE RECORDS SUMMARY | 2023-07-29 08:06 | XMS_ITS | Continuity of Care Document ---
Author Name Unknown Organization [facility] ter Address [address] [place] [address]- Care Team Providers Care Laboratory Tech Name Role Phone Betina Pena MD Primary Care Physician [facility]counter [facility] Date(s): 11/04/19 - 11/05/[address] [address]- [facility] Discharge Disposition: A-D/C Home Attending Physician: Roberto Hart MD Admitting Physician: Roberto Hart MD Referring Physician: Roberto Hart MD Allergies, Adverse Reactions, Alerts Substance Reaction Severity Status oxyCODONE Active Immunizations Given and Recorded Vaccine Date [...] tablet By Mouth Daily,x90 days, 157, cm, 12/03/19 15:12:06 EST, Height, 121.8, kg, 08/04/18 16:43:39 EDT, Dry Weight Start Date: 10/25/19 Stop Date: 10/19/20 Status: Ordered Vicodin 5 mg-300 mg oral tablet 1 tablet, By Mouth, Every 6 hours, PRN as needed for pain, for 3 days, Please use only if pain is not well controlled with Tylenol. Do not exceed 4000mg of Tylenol per day., # 7 tablet, 0 Refills, Acute 11/08/19 12:03:53 EST, 11/05/19 12:03:53 EST, Ta... Start Date: 11/05/19 Stop Date: 11/08/19 Status: Ordered Problem List Condition Effective Dates [...] oldest [Reference Range]: 1 2 3 Weight 127.9 kg (11/05/19 6:57 AM) 127.9 kg (11/04/19 11:19 AM) Oxygen Saturation [94-100 %] 100 % (11/05/19 7:47 PM) 100 % (11/05/19 4:00 PM) 98 % (11/05/19 11:43 AM) Pulse Rate [55-90 bpm] 87 bpm (11/05/19 7:47 PM) 70 bpm (11/05/19 4:00 PM) 83 bpm (11/05/19 11:43 AM) Blood Pressure [90-138/55-84 mm Hg] 146/86mm Hg *H* (11/05/19 7:47 PM) 134/80mm Hg (11/05/19 4:00 PM) 131/75mm Hg (11/05/19 11:43 AM) Respiratory Rate [16-30 br/min] 20 br/min (11/05/19 9:11 PM) 18 br/min (11/05/19 7:47 PM) 17 br/min (11/05/19 4:49 PM) Temperature [96.8-100.4 DegF] 98.0 DegF (11/05/19 7:47 PM) 98.2 DegF (11/05/19 4:00 PM) 98.0 DegF (11/05/19 11:43 AM) Liters per Minute 6 L/min (11/05/19 10:00 AM) 6 L/min (11/05/19 9:45 AM) Mode of Delivery (Oxygen) Room air (11/05/19 7:47 PM) Room air (11/05/19 4:00 PM) Room air (11/05/19 11:43 AM) Blood pressure sites Arm, right (11/05/19 7:47 PM) Arm, right (11/05/19 4:00 PM) Arm, right (11/05/19 11:43 AM) Temperature Route Oral (11/05/19 7:47 PM) Oral (11/05/19 4:00 PM) Oral (11/05/19 11:43 AM) Dry Weight 127.9 kg (11/04/19 11:19 AM) Weight Obtained Via Standing scale (11/04/19 11:19 AM) Dry Weight Obtained Via Standing scale (11/04/19 11:19 AM) Social History Social History Type Response Smoking Status Never (less than 100 in lifetime) entered on: 08/31/19 Sex
--- OUTSIDE RECORDS SUMMARY | 2023-07-29 08:06 | XMS_ITS | Continuity of Care Document ---
Author Name Unknown Organization [facility] ter Address [address] [place] [address]- Care Team Providers Care Fighter Pilot Name Role Phone Betina Pena MD Primary Care Physician Encounter [facility] Date(s): 12/06/21 - 12/06/[address] [address] Discharge Disposition: A-D/C Home Attending Physician: [...] 09/06/21 8:52:00 EDT, Route to Pharmacy Electronically, [facility]/pharmacy #[id number], Partial fill upon patient request if the prescription is for a schedule II opioid drug., 1... Start Date: 09/06/21 Status: Ordered aspirin 81 mg oral tablet, chewable 81 mg, 1, tablet, By Mouth, Daily, # 30 tablet, Refills 0, Tot. Refills 0, Maintenance, 08/13/21 9:23:00 EDT, Route to Pharmacy Electronically, [facility]/pharmacy #[id number], Partial fill upon patient request [...]
--- OUTSIDE RECORDS SUMMARY | 2023-07-29 08:06 | XMS_ITS | Continuity of Care Document ---
Author Name Unknown Organization [facility] Address [address] [place] [address]- Care Team Providers Care Line Repairer Name Role Phone Betina Pena MD Primary Care Physician Encounter [facility] Date(s): 12/15/19 - 01/19/[address] [address] [facility] Attending Physician: Tere Iyer DO Admitting Physician: Tere Iyer DO Referring Physician: Shannon Ervin MD Allergies, Adverse Reactions, Alerts Substance Reaction [...] 12/23/19 10:46:00 EST, Route to Pharmacy Electronically, [facility]/pharmacy #[id number], 158, cm, 12/23/19 9:36:00 [...]
--- OUTSIDE RECORDS SUMMARY | 2023-07-29 08:06 | XMS_ITS | Continuity of Care Document ---
Author Name Unknown Organization [facility] ter Address [address] [place] [address]- Care Team Providers Care Trade Marker Name Role Phone Betina Pena MD Primary Care Physician Encounter [facility] Date(s): 01/04/22 - 02/09/[address] [address] Attending Physician: Gerardo Hanson DO Admitting Physician: Gerardo Hanson DO Referring Physician: Nicolette May CNM Allergies, Adverse Reactions, Alerts Substance Reaction Severity Status oxyCODONE Headache Nausea and vomiting Active Immunizations Given and Recorded Vaccine Date Status Refusal Reason SARS-CoV-2 mRNA ([id number]) vax 01/13/22 Given tetanus/diphtheria/pertussis, acel(Tdap) 10/18/21 Given [...] 09/06/21 8:52:00 EDT, Route to Pharmacy Electronically, [facility]/pharmacy #[id number], Partial fill upon patient request if the prescription is for a schedule II opioid drug., 1... Start Date: 09/06/21 Status: Ordered clindamycin 1% topical solution 1 application, Topically, 2 times a day, # 60 mL, 0 Refills, Maintenance, 01/07/22 14:35:00 EST, Solution, [facility]/pharmacy #[id number], Partial fill upon [...]
--- OUTSIDE RECORDS SUMMARY | 2023-07-29 08:06 | XMS_ITS | Continuity of Care Document ---
Author Name Unknown Organization [facility] ter Address [address] [place] [address]- Care Team Providers Care Burr Mill Operator Name Role Phone Betina Pena MD Primary Care Physician Encounter [facility] Date(s): 12/27/21 - 12/27/[address] [address] Discharge Disposition: A-D/C Home Attending Physician: Gerardo [...] 09/06/21 8:52:00 EDT, Route to Pharmacy Electronically, [facility]/pharmacy #[id number], Partial fill upon patient request if the [...]
--- OUTSIDE RECORDS SUMMARY | 2023-07-29 08:06 | XMS_ITS | Continuity of Care Document ---
Author Name Unknown Organization [facility] Address [address] [place] [address]- Care Team Providers Care Bung Dropper Name Role Phone Betina Pena MD Primary Care Physician [facility]counter [facility] Date(s): 12/15/19 - 12/25/19 [facility] [address] [place] [address]- [facility] Attending Physician: Artem Sparks Admitting Physician: [...] 0 Refills, Maintenance, 12/23/19 14:31:00 EST, Tablet, [facility]/pharmacy #[id number], 1 tablet By Mouth Daily at bedtime, 158, cm, 12/23/19 9:36:00 EST, Height, 127.27, kg, 12/19/19 16:32:00 EST, Dry Weight Start Date: 12/23/19 Status: Ordered ferrous sulfate 325 mg oral tablet 1 tablet = 325 mg, By Mouth, 2 times a day, # 60 tablet, 0 Refills, Maintenance, 12/23/19 14:30:00 EST, [facility]/pharmacy #[id number], 158, cm, 12/23/19 9:36:00 EST, [...] 12/23/19 10:46:00 EST, Route to Pharmacy Electronically, [facility]/pharmacy #[id number], 158, cm, 12/23/19 9:36:00 EST, [...] Active Migraine(Confirmed) Active Obesity(Confirmed) Active (Confirmed) Active Social History Social History Type Response Smoking Status Never (less than 100 in lifetime) entered on: 08/31/19 Sex Female
--- OUTSIDE RECORDS SUMMARY | 2023-07-29 08:07 | XMS_ITS | Continuity of Care Document ---
Author Name Unknown Organization [facility] ter Address [address] [place] [address]- Care Team Providers Care Prosthetic Dentist Name Role Phone Betina Pena MD Primary Care Physician [place] [facility] [place] 12/29/19 - 12/30/[address] [address]- [facility] Discharge Disposition: A-D/C Home Attending Physician: Patsy Manzanares MD Admitting Physician: Patsy Manzanares MD Referring Physician: Patsy Manzanares MD Allergies, Adverse Reactions, Alerts Substance Reaction [...] 0 Refills, Maintenance, 12/23/19 14:31:00 EST, Tablet, [facility]/pharmacy #[id number], 1 tablet By Mouth Daily at bedtime, 158, cm, 12/23/19 9:36:00 EST, Height, 127.27, kg, 12/19/19 16:32:00 EST, Dry Weight Start Date: 12/23/19 Status: Ordered ferrous sulfate 325 mg oral tablet 1 tablet = 325 mg, By Mouth, 2 times a day, # 60 tablet, 0 Refills, Maintenance, 12/23/19 14:30:00 EST, [facility]/pharmacy #[id number], 158, cm, 12/23/19 9:36:00 EST, [...] 12/23/19 10:46:00 EST, Route to Pharmacy Electronically, [facility]/pharmacy #[id number], 158, cm, 12/23/19 9:36:00 EST, [...] oldest [Reference Range]: 1 2 3 Weight 119.3 kg (12/29/19 11:24 PM) Oxygen Saturation [94-100 %] 100 % (12/30/19 2:37 AM) 100 % (12/30/19 2:04 AM) 100 % (12/30/19 1:20 AM) Pulse Rate [55-90 bpm] 91 bpm *H* (12/30/19 2:37 AM) 90 bpm (12/30/19 2:04 AM) 97 bpm *H* (12/30/19 1:20 AM) Blood Pressure [90-138/55-84 mm Hg] 111/81mm Hg (12/30/19 2:37 AM) 125/88mm Hg (12/30/19 2:04 AM) 128/91mm Hg (12/30/19 1:20 AM) Respiratory Rate [16-30 br/min] 18 br/min (12/30/19 4:20 AM) 20 br/min (12/30/19 2:37 AM) 20 br/min (12/30/19 2:04 AM) Temperature [96.8-100.4 DegF] 99.1 DegF (12/29/19 11:35 PM) Mode of Delivery (Oxygen) Room air (12/30/19 2:37 AM) Room air (12/30/19 2:04 AM) Room air (12/30/19 1:20 AM) Blood pressure sites Arm, left (12/30/19 2:37 AM) Arm, left (12/30/19 2:04 AM) Arm, left (12/30/19 1:20 AM) Temperature Route Oral (12/29/19 11:35 PM) Social History Social History Type Response Smoking Status Never (less than 100 in lifetime) entered on: 08/31/19 Sex
--- OUTSIDE RECORDS SUMMARY | 2023-07-29 08:07 | XMS_ITS | Continuity of Care Document ---
Author Name Unknown Organization [facility] Address [address] [place] [address]- Care Team Providers Care Pens And Pencils Dipper Name Role Phone Betina Pena MD Primary Care Physician Encounter [facility] [place] Date(s): 09/20/19 - 11/16/[address] [address]- [facility] Attending Physician: Not on Staff, Attending MD Referring Physician: Lee Hayes MD Allergies, Adverse Reactions, Alerts Substance Reaction [...]
--- OUTSIDE RECORDS SUMMARY | 2023-07-29 08:07 | XMS_ITS | Continuity of Care Document ---
Author Name Unknown Organization [facility] Address [address] [place] [address]- Care Team Providers Care Silk Screen Printing Racker Name Role Phone Becky MARSH, Betina Johnson Primary Care Physician Encounter [facility] Date(s): 11/04/21 - 12/04/[address] [address]- Allergies, Adverse Reactions, Alerts Substance Reaction Severity [...] to Pharmacy Electronically, [facility]/pharmacy #[id number], Partial fill upon patient request if the [...]
--- OUTSIDE RECORDS SUMMARY | 2023-07-29 08:07 | XMS_ITS | Continuity of Care Document ---
Author Name Unknown Organization [facility] Address [address] [place] [address]- Care Team Providers Care Marine Services Technician Name Role Phone Becky MARSH, Betina Johnson Primary Care Physician En[place] [facility] [place] Date(s): 01/20/20 - 05/13/[address] [address]- [facility] Attending Physician: Not on Staff, Attending MD Referring Physician: Betina Pena MD Allergies, Adverse Reactions, Alerts Substance Reaction [...] 12/23/19 10:46:00 EST, Route to Pharmacy Electronically, [facility]/pharmacy #[id number], 158, cm, 12/23/19 9:36:00 [...]
--- OUTSIDE RECORDS SUMMARY | 2023-07-29 08:07 | XMS_ITS | Continuity of Care Document ---
Author Name Unknown Organization [facility] Address [address] [place] [address]- Care Team Providers Care Getter Filler Name Role Phone Betina Pena MD Primary Care Physician Encounter [facility] Date(s): 10/18/21 - 01/11/[address] [address]- Attending Physician: Not on Staff, Attending MD [...] 09/06/21 8:52:00 EDT, Route to Pharmacy Electronically, [facility]/pharmacy #[id number], Partial fill upon patient request if the prescription is for a schedule II opioid drug., 1... Start Date: 09/06/21 Status: Ordered clindamycin 1% topical solution 1 application, Topically, 2 times a day, # 60 mL, 0 Refills, Maintenance, 01/07/22 14:35:00 EST, Solution, [id number], Partial fill upon patient request [...]
--- OUTSIDE RECORDS SUMMARY | 2023-07-29 08:07 | XMS_ITS | Continuity of Care Document ---
Author Name Unknown Organization [facility] Address [address] [place] [address]- Care Team Providers Care Vacuum Plastic Forming Machine Operator Name Role Phone Betina Pena MD Primary Care Physician Encounter [facility] [place] Date(s): 09/18/21 - 10/18/21 [facility] [address] [place] [address] Attending Physician: Artem Sparks Admitting Physician: AdmArtem kahn Referring Physician: AdmtrArtem Allergies, Adverse Reactions, Alerts [...] 09/06/21 8:52:00 EDT, Route to Pharmacy Electronically, [facility]/pharmacy #[id number], Partial fill upon patient request if the prescription is for a schedule II opioid drug., 1... Start Date: 09/06/21 Status: Ordered aspirin 81 mg oral tablet, chewable 81 mg, 1, tablet, By Mouth, Daily, # 30 tablet, Refills 0, Tot. Refills 0, Maintenance, 08/13/21 9:23:00 EDT, Route to Pharmacy Electronically, [facility]/pharmacy #[id number], Partial fill upon patient request if [...] 0 Refills, Maintenance, 08/22/21 16:18:00 EDT, Tablet, [facility]/pharmacy #[id number], Partial fill upon patient request if [...]
--- OUTSIDE RECORDS SUMMARY | 2023-07-29 08:07 | XMS_ITS | Continuity of Care Document ---
Author Name Unknown Organization [facility] ter Address [address] [place] [address]- Care Team Providers Care Mint Wafer Depositor Name Role Phone Betina Pena MD Primary Care Physician Encounter [facility] [place] Date(s): 11/04/21 - 11/05/[address] [address] Discharge Disposition: A-D/C Home Attending Physician: Tavo Vicente MD Admitting Physician: Tavo Vicente MD Referring Physician: Tavo Vicente MD Allergies, Adverse Reactions, Alerts Substance Reaction [...] 8:52:00 EDT, Route to Pharmacy Electronically, [facility]/pharmacy #[id number], Partial fill upon patient request if the prescription is for a schedule II opioid drug., 1... Start Date: 09/06/21 Status: Ordered aspirin 81 mg oral tablet, chewable 81 mg, 1, tablet, By Mouth, Daily, # 30 tablet, Refills 0, Tot. Refills 0, Maintenance, 08/13/21 9:23:00 EDT, Route to Pharmacy Electronically, [facility]/pharmacy #[id number], Partial fill upon patient request [...] virus detected Jul(Confirmed) Active Severe obesity(Confirmed) Active Vital Signs Most recent to oldest [Reference Range]: 1 2 Height 158 cm (11/04/21 6:35 PM) Weight 127.6 kg (11/04/21 6:11 PM) Oxygen Saturation [94-100 %] 97 % (11/04/21 8:07 PM) Pulse Rate [55-90 bpm] 98 bpm *H* (11/04/21 6:35 PM) Blood Pressure [90-138/55-84 mm Hg] 110/ 65mm Hg (11/04/21 8:07 PM) 109/67mm Hg (11/04/21 6:35 PM) Respiratory Rate [16-30 br/min] 18 br/mi n (11/04/21 8:07 PM) 16 br/min (11/04/21 6:35 PM) Temperature [96.8-100.4 DegF] 98.6 DegF (11/04/21 6:11 PM) Blood pressure sites Arm, right (11/04/21 8:07 PM) Arm, right (11/04/21 6:35 PM) Temperature Route Oral (11/04/21 6:35 PM) Oral (11/04/21 6:11 PM) Weight Obtained Via Standing scale (11/04/21 6:11 PM) Social History Social History Type Response Smoking Status Never (less than 100 in lifetime) entered on: 08/31/19 Sex Female
--- OUTSIDE RECORDS SUMMARY | 2023-07-29 08:07 | XMS_ITS | Continuity of Care Document ---
Author Name Unknown Organization [facility] Address [address] [place] [address]- Care Team Providers Care Jack Machine Operator Name Role Phone Betina Pena MD Primary Care Physician [facility]counter [facility] Date(s): 10/31/21 - 02/22/22 [facility] [address] [address]- Attending Physician: Not on Staff, Attending MD Allergies, Adverse Reactions, Alerts Substance Reaction Severity Status oxyCODONE Headache Nausea and vomiting Active Immunizations Given and Recorded Vaccine Date Status Refusal Reason SARS-CoV-2 mRNA (gbeoaic-toha-dtozf) vax 02/20/22 Given SARS-CoV-2 mRNA (rqsrilu-wnsa-opgcr) vax 01/13/22 Given tetanus/diphtheria/pertussis, acel(Tdap) 10/18/21 Given [...] 09/06/21 8:52:00 EDT, Route to Pharmacy Electronically, [facility]/pharmacy #[id number], Partial fill upon patient request if the [...] Date: 10/25/19 Stop Date: 10/19/20 Status: Ordered sertraline 50 mg oral tablet See Instructions, 0.5 tablet By Mouth x4 days, then increase to 1 tablet daily, # 30 tablet, 1 Refills, Maintenance, 02/20/22 17:16:00 EDT, [id number], Partial fill upon patient request if the prescription is for a schedule II opioid drug., 15... Start Date: 02/20/22 Status: Ordered Problem List Condition Effective Dates [...]
--- OUTSIDE RECORDS SUMMARY | 2023-07-29 08:07 | XMS_ITS | Continuity of Care Document ---
Author Name Unknown Organization [facility] ter Address [address] [place] [address]- Care Team Providers Care Music Intern Name Role Phone Betina Pena MD Primary Care Physician [place] [facility] [place] 08/26/21 - 10/16/[address] [address]- Attending Physician: Garth Juan MD Admitting Physician: Garth Juan MD Referring Physician: Merna Alcala DO Allergies, Adverse Reactions, Alerts Substance Reaction Severity [...] 09/06/21 8:52:00 EDT, Route to Pharmacy Electronically, [facility]/pharmacy #[id number], Partial fill upon patient request if the [...]
--- OUTSIDE RECORDS SUMMARY | 2023-07-29 08:07 | XMS_ITS | Continuity of Care Document ---
Author Name Unknown Organization [facility] Address [address] [place] [address]- Care Team Providers Care Stick Roller Name Role Phone Betina Pena MD Primary Care Physician [place] [facility] [place] - 09/26/21 [facility] [address] [place] [address]- Allergies, Adverse Reactions, Alerts Substance Reaction Severity [...] 8:52:00 EDT, Route to Pharmacy Electronically, [facility]/pharmacy #[id number], Partial fill upon patient request if [...]
--- OUTSIDE RECORDS SUMMARY | 2023-07-29 08:07 | XMS_ITS | Continuity of Care Document ---
Author Name Unknown Organization [facility] Address [address] [place] [address]- Care Team Providers Care Receptionist/Telephone Operator Name Role Phone Betina Pena MD Primary Care Physician Encounter [facility] [place] Date(s): 11/09/19 - 12/28/[address] [address]- [facility] Attending Physician: Not on Staff, Attending MD [...] 0 Refills, Maintenance, 12/23/19 14:31:00 EST, Tablet, [facility]/pharmacy #[id number], 1 tablet By Mouth Daily at bedtime, 158, cm, 12/23/19 9:36:00 EST, Height, 127.27, kg, 12/19/19 16:32:00 EST, Dry Weight Start Date: 12/23/19 Status: Ordered ferrous sulfate 325 mg oral tablet 1 tablet = 325 mg, By Mouth, 2 times a day, # 60 tablet, 0 Refills, Maintenance, 12/23/19 14:30:00 EST, [facility]/pharmacy #[id number], 158, cm, 12/23/19 9:36:00 EST, Height, [...] 12/23/19 10:46:00 EST, Route to Pharmacy Electronically, [facility]/pharmacy #[id number], 158, cm, 12/23/19 9:36:00 EST, Height, [...]
--- OUTSIDE RECORDS SUMMARY | 2023-07-29 08:07 | XMS_ITS | Continuity of Care Document ---
Author Name Unknown Organization [facility] Address [address] [place] [address] [address] [place] [address]- Care Team Providers Care Wire Rigger Name Role Phone Betina Pena MD Primary Care Physician [place] [facility] [place] 11/21/[place] - 12/01/[address] [place] [address]- [facility] Attending Physician: Pee Sparks8 Admitting Physician: AdmArtem kahn Referring Physician: AdmtrPee8 Allergies, Adverse Reactions, Alerts Substance Reaction Severity [...]
--- OUTSIDE RECORDS SUMMARY | 2023-07-29 08:07 | XMS_ITS | Continuity of Care Document ---
Author Name Unknown Organization [facility] Address [address] [place] [address]- Care Team Providers Care Writer Producer Name Role Phone Becky MARSH, Betina Johnson Primary Care Physician Encounter [facility] Date(s): 07/04/21 - 08/03/[address] [address]- Allergies, Adverse Reactions, Alerts Substance Reaction Severity [...] tablet, 0 Refills, Maintenance, 12/23/19 14:30:00 EST, [facility]/pharmacy #[id number], 158, cm, 12/23/19 9:36:00 EST, Height, 127.27, kg, 12/19/19 16:32:00 EST, Dry Weight Start Date: 12/23/19 Status: Ordered NIFEdipine 30 mg oral tablet, extended release 30 mg, 1, tablet, By Mouth, Daily, # 60 tablet, Refills 0, Tot. Refills 0, Maintenance, 12/23/19 10:46:00 EST, Route to Pharmacy Electronically, [facility]/pharmacy #[id number], 158, cm, 12/23/19 9:36:00 EST, [...]
--- OUTSIDE RECORDS SUMMARY | 2023-07-29 08:07 | XMS_ITS | Continuity of Care Document ---
Author Name Unknown Organization [facility] Address [address] [place] [address]- Care Team Providers Care Edger Machine Operator Name Role Phone Betina Pena MD Primary Care Physician En[place] [facility] [place] Date(s): 02/24/22 - 04/02/[address] [address] Attending Physician: Not on Staff, Attending MD Allergies, Adverse Reactions, Alerts Substance Reaction Severity Status oxyCODONE Headache Nausea and vomiting Active Immunizations Given and Recorded Vaccine Date Status Refusal Reason SARS-CoV-2 mRNA (zxtmuih-kwfh-irqfe) vax 02/20/22 Given SARS-CoV-2 mRNA (jknywij-nxvu-auxlm) vax 01/13/22 Given tetanus/diphtheria/pertussis, acel(Tdap) 10/18/21 Given [...] 09/06/21 8:52:00 EDT, Route to Pharmacy Electronically, [facility]/pharmacy #[id number], Partial fill upon patient request if the [...]
--- OUTSIDE RECORDS SUMMARY | 2023-07-29 08:07 | XMS_ITS | Continuity of Care Document ---
Author Name Unknown Organization [facility] Address [address] [place] [address]- Care Team Providers Care Cable Installation Manager Name Role Phone Becky MARSH, Betina Johnson Primary Care Physician Encounter [facility] [place] Date(s): 11/27/21 - 01/02/[address] [address]- Attending Physician: Gerardo Hanson DO Admitting Physician: [...] 09/06/21 8:52:00 EDT, Route to Pharmacy Electronically, [facility]/pharmacy #[id number], Partial fill upon patient request if the [...]
--- OUTSIDE RECORDS SUMMARY | 2023-07-29 08:07 | XMS_ITS | Continuity of Care Document ---
Author Name Unknown Organization [facility] Address [address] [place] [address]- Care Team Providers Care Organizational Consultant Name Role Phone Betina Pena MD Primary Care Physician [place] [facility] [place]/06/22 - 04/05/[address] [address] Attending Physician: Admcriss, Artem Admitting Physician: Admtr, Pee8 Referring Physician: Admtr, Ar8 Allergies, Adverse Reactions, Alerts Substance Reaction Severity Status oxyCODONE Headache Nausea and vomiting Active Immunizations Given and Recorded Vaccine Date Status Refusal Reason SARS-CoV-2 mRNA (modkfug-uone-jhtzv) vax 02/20/22 Given SARS-CoV-2 mRNA (maazfiq-mrgr-tdwpf) vax 01/13/22 Given tetanus/diphtheria/pertussis, acel(Tdap) 10/18/21 Given [...] 09/06/21 8:52:00 EDT, Route to Pharmacy Electronically, [facility]/pharmacy #[id number], Partial fill upon patient request if the prescription is for a schedule II opioid drug., 1... Start Date: 09/06/21 Status: Ordered clindamycin 1% topical solution 1 application, Topically, 2 times a day, # 60 mL, 0 Refills, Maintenance, 01/07/22 14:35:00 EST, Solution, [facility]/pharmacy #[id number], Partial fill upon patient [...] tablet, 1 Refills, Maintenance, 02/20/22 17:16:00 EDT, [facility]/pharmacy #[id number], Partial fill upon patient [...]
--- OUTSIDE RECORDS SUMMARY | 2023-07-29 08:07 | XMS_ITS | Continuity of Care Document ---
Author Name Unknown Organization [facility] ter Address [address] [place] [address]- Care Team Providers Care Steam Plant Control Room Operator Name Role Phone Betina Pena MD Primary Care Physician [place] [facility] [place] - 07/29/[address] [address]- Encounter Diagnosis COVID-19(Final) - 07/29/21 Discharge Disposition: A-D/C Home Attending Physician: Jacqueline Graves MD Admitting Physician: Jacqueline Graves MD Referring Physician: Not on Staff, Referring [...] tablet, 0 Refills, Maintenance, 12/23/19 14:30:00 EST, [facility]/pharmacy #[id number], 158, cm, 12/23/19 9:36:00 EST, Height, 127.27, kg, 12/19/19 16:32:00 EST, Dry Weight Start Date: 12/23/19 Status: Ordered NIFEdipine 30 mg oral tablet, extended release 30 mg, 1, tablet, By Mouth, Daily, # 60 tablet, Refills 0, Tot. Refills 0, Maintenance, 12/23/19 10:46:00 EST, Route to Pharmacy Electronically, [facility]/pharmacy #[id number], 158, cm, 12/23/19 9:36:00 [...] Range]: 1 2 3 Height 158 cm (07/29/21 7:58 PM) 158 cm (07/29/21 3:13 PM) 158 cm (07/29/21 2:37 PM) Weight 145 kg (07/29/21 7:58 PM) 145 kg (07/29/21 3:13 PM) 145 kg (07/29/21 2:37 PM) Oxygen Saturation [94-100 %] 100 % (07/29/21 7:58 PM) 100 % (07/29/21 3:13 PM) 98 % (07/29/21 2:37 PM) Pulse Rate [55-90 bpm] 102 bpm *H* (07/29/21 7:58 PM) 110 bpm *H* (07/29/21 3:13 PM) 107 bpm *H* (07/29/21 2:37 PM) Body Mass Index [18.5-24.99] 58.08 *>HHI* (07/29/21 2:37 PM) Blood Pressure [90-138/55-84 mm Hg] 111/66mm Hg (07/29/21 7:58 PM) 119/80mm Hg (07/29/21 3:13 PM) 135/76mm Hg (07/29/21 2:37 PM) Respiratory Rate [16-30 br/min] 18 br/min (07/29/21 7:58 PM) 18 br/min (07/29/21 3:13 PM) 19 br/min (07/29/21 2:37 PM) Temperature [96.8-100.4 DegF] 98.6 DegF (07/29/21 7:58 PM) 99.2 DegF (07/29/21 3:13 PM) 99.1 DegF (07/29/21 2:37 PM) Mode of Delivery (Oxygen) Room air (07/29/21 7:58 PM) Room air (07/29/21 3:13 PM) Room air (07/29/21 2:37 PM) Blood pressure sites Arm, right (07/29/21 2:37 PM) Temperature Route Oral (07/29/21 7:58 PM) Oral (07/29/21 3:13 PM) Oral (07/29/21 2:37 PM) Dry Weight 145 kg (07/29/21 7:58 PM) 145 kg (07/29/21 3:13 PM) 145 kg (07/29/21 2:37 PM) Weight Obtained Via Patient/family state d (07/29/21 2:37 PM) Dry Weight Obtained Via Patient/family s tated (07/29/21 2:37 PM) Social History Social History Type Response Smoking Status Never (less than 100 in lifetime) entered on: 08/31/19 Sex
--- OUTSIDE RECORDS SUMMARY | 2023-07-29 08:07 | XMS_ITS | Continuity of Care Document ---
Author Name Unknown Organization [facility] ter Address [address] [place] [address]- Care Team Providers Care Smoke And Flame Specialist Name Role Phone Betina Pena MD Primary Care Physician Encounter [facility] [place] Date(s): 10/29/19 - 11/02/[address] [address]- [facility] Discharge Disposition: A-D/C Home Attending Physician: Kacey Montgomery DO Admitting Physician: Marylin Vo DO Referring Physician: Not on Staff, Referring MD [...] capsule 100 mg, 1, capsule, By Mouth, 2 times a day, PRN, # 40 capsule, Refills 0, Tot. Refills 0, Maintenance, for constipation, 09/25/18 8:10:37 EDT, Print Requisition Start Date: 09/25/18 Status: Ordered ferrous fumarate-iron polysaccharide 162 mg-115.2 mg oral capsule 1 capsule, By Mouth, Daily, 0 Refills, Maintenance, 04/16/18 16:29:51 EDT Start Date: 04/16/18 Status: Ordered Multivitamins with Folic Acid 1 [...] oldest [Reference Range]: 1 2 3 Height 157 cm (11/01/19 3:21 PM) 157 cm (11/01/19 11:47 AM) 157 cm (11/01/19 8:05 AM) Weight 128.8 kg (10/29/19 8:00 PM) 128.8 kg (10/29/19 5:12 PM) 128.8 kg (10/29/19 1:19 PM) Oxygen Saturation [94-100 %] 100 % (11/02/19 12:00 PM) 100 % (11/02/19 8:00 AM) 99 % (11/02/19 3:00 AM) Pulse Rate [55-90 bpm] 95 bpm *H* (11/02/19 12:00 PM) 72 bpm (11/02/19 8:00 AM) 82 bpm (11/02/19 3:00 AM) Body Mass Index [18.5-24.99] 52.25 *>HHI* (10/29/19 8:00 PM) 52.25 *>HHI* (10/29/19 5:12 PM) Blood Pressure [90-138/55-84 mm Hg] 133/82mm Hg (11/02/19 12:00 PM) 103/62mm Hg (11/02/19 8:00 AM) 91/58mm Hg (11/02/19 3:00 AM) Respiratory Rate [16-30 br/min] 18 br/min (11/02/19 12:00 PM) 18 br/min (11/02/19 8:00 AM) 18 br/min (11/02/19 3:00 AM) Temperature [96.8-100.4 DegF] 98.4 DegF (11/02/19 12:00 PM) 98 DegF (11/02/19 8:00 AM) 97.9 DegF (11/02/19 3:00 AM) Mode of Delivery (Oxygen) Room air (11/02/19 12:00 PM) Room air (11/02/19 8:00 AM) Room air (11/02/19 3:00 AM) Blood pressure sites Arm, left (11/02/19 12:00 PM) Arm, left (11/02/19 8:00 AM) Arm, left (11/02/19 3:00 AM) Temperature Route Oral (11/02/19 12:00 PM) Oral (11/02/19 8:00 AM) Oral (11/02/19 3:00 AM) Dry Weight 128.8 kg (10/29/19 8:00 PM) 128.8 kg (10/29/19 5:12 PM) 128.8 kg (10/29/19 1:19 PM) Sensory deficits None (10/29/19 8:00 PM) Mobility assistance Independent (10/29/19 8:00 PM) Social History Social History Type Response Smoking Status Never (less than 100 in lifetime) entered on: 08/31/19 Sex
--- OUTSIDE RECORDS SUMMARY | 2023-07-29 08:07 | XMS_ITS | Continuity of Care Document ---
Author Name Unknown Organization [facility] Address [address] [place] [address]- Care Team Providers Care Public Service Administrator Name Role Phone Becky MARSH, Betina Johnson Primary Care Physician Encounter [facility] [place] Date(s): 10/29/19 - 12/04/19 [facility] [address] [address]- [facility] Attending Physician: Tere Iyer DO Admitting Physician: Tere Iyer DO Referring Physician: Vernon MARSH, Shannon Adams Allergies, [...]
--- OUTSIDE RECORDS SUMMARY | 2023-07-29 08:07 | XMS_ITS | Continuity of Care Document ---
Author Name Unknown Organization [facility] Address [address] [place] [address]- Care Team Providers Care Barratte Operator Name Role Phone Becky MARSH, Betina Johnson Primary Care Physician Encounter [facility] [place] Date(s): 12/11/21 - 01/16/[address] [address] Attending Physician: Gerardo Hanson DO Admitting Physician: Gerardo Hanson DO Referring Physician: Nicolette May CNM Allergies, Adverse Reactions, Alerts Substance Reaction Severity Status oxyCODONE Headache Nausea and vomiting Active Immunizations Given and Recorded Vaccine Date Status Refusal Reason SARS-CoV-2 mRNA (uusfety-upzu-yshfp) vax 01/13/22 Given tetanus/diphtheria/pertussis, acel(Tdap) 10/18/21 Given [...] 09/06/21 8:52:00 EDT, Route to Pharmacy Electronically, [facility]/pharmacy #[id number], Partial fill upon patient request if the prescription is for a schedule II opioid drug., 1... Start Date: 09/06/21 Status: Ordered clindamycin 1% topical solution 1 application, Topically, 2 times a day, # 60 mL, 0 Refills, Maintenance, 01/07/22 14:35:00 EST, Solution, [facility]/pharmacy #[id number], Partial fill upon patient [...]
--- OUTSIDE RECORDS SUMMARY | 2023-07-29 08:07 | XMS_ITS | Continuity of Care Document ---
Author Name Unknown Organization [facility] Address [address] [place] [id number]- Care Team Providers Care Roof Truss Machine Tender Name Role Phone Becky MARSH, Betina Johnson Primary Care Physician Encounter [facility] [place] Date(s): 05/13/22 - 06/12/[address] [id number] Allergies, Adverse Reactions, Alerts Substance Reaction Severity Status oxyCODONE Headache Nausea and vomiting Active Immunizations Given and Recorded Vaccine Date Status Refusal Reason SARS-CoV-2 mRNA (smyrfoa-gtap-kgrnf) vax 02/20/22 Given SARS-CoV-2 mRNA (gjjmzmy-gqmr-ozjry) vax 01/13/22 Given tetanus/diphtheria/pertussis, acel(Tdap) 10/18/21 Given [...] 09/06/21 8:52:00 EDT, Route to Pharmacy Electronically, [facility]/pharmacy #[id number], Partial fill upon patient request if the [...]
--- OUTSIDE RECORDS SUMMARY | 2023-07-29 08:07 | XMS_ITS | Continuity of Care Document ---
Author Name Unknown Organization [facility] Address [address] [place] [id number]- Care Team Providers Care Lead Applier Name Role Phone Betina Pena MD Primary Care Physician [place] [facility] [place] 12/17/[place] - 01/22/[address] [address]- [facility] Attending Physician: Tere Iyer DO Admitting Physician: Tere Iyer DO Referring Physician: Terri MARSH [facility] Allergies, Adverse Reactions, Alerts Substance Reaction Severity [...] 12/23/19 10:46:00 EST, Route to Pharmacy Electronically, [facility]/pharmacy #[id number], 158, cm, 12/23/19 9:36:00 EST, [...]
--- OUTSIDE RECORDS SUMMARY | 2023-07-29 08:07 | XMS_ITS | Continuity of Care Document ---
Author Name Unknown Organization [facility] Address [address] [place] [phone]- Care Team Providers Care Records Associate Name Role Phone Betina Pena MD Primary Care Physician Encounter [facility] [place] Date(s): 10/31/21 - 02/08/[address] [address] Attending Physician: Not on Staff, Attending MD Allergies, Adverse Reactions, Alerts Substance Reaction Severity Status oxyCODONE Headache Nausea and vomiting Active Immunizations Given and Recorded Vaccine Date Status Refusal Reason SARS-CoV-2 mRNA (hebeexi-ippx-iveno) vax 01/13/22 Given tetanus/diphtheria/pertussis, acel(Tdap) 10/18/21 Given [...] 09/06/21 8:52:00 EDT, Route to Pharmacy Electronically, [facility]/pharmacy #[id number], Partial fill upon patient request if the prescription is for a schedule II opioid drug., 1... Start Date: 09/06/21 Status: Ordered clindamycin 1% topical solution 1 application, Topically, 2 times a day, # 60 mL, 0 Refills, Maintenance, 01/07/22 14:35:00 EST, Solution, [facility]/pharmacy #[id number], Partial fill upon patient request [...]
--- OUTSIDE RECORDS SUMMARY | 2023-07-29 08:07 | XMS_ITS | Continuity of Care Document ---
Author Name Unknown Organization [facility] Address [address] [place] [address]- Care Team Providers Care Human Resources Receptionist Name Role Phone Betina Pena MD Primary Care Physician Encounter [facility] [place] Date(s): 12/20/21 - 12/20/[address] [address] Discharge Disposition: A-D/C Home Attending Physician: [...] 09/06/21 8:52:00 EDT, Route to Pharmacy Electronically, [facility]/pharmacy #[id number], Partial fill upon patient request if the [...]
--- NOTE | 2023-07-29 10:12 | A.OFFVIS_ITS ---
Intake VS Expanded 07/29/23 11:25 Height 5 ft 2 in Weight 337 lb 9 oz BMI 61.7 Intake Visit Reasons: TV Consult/Transfer Niesha - Allergies oxycodone Allergy (Unknown, Verified 07/29/23 10:12) nausea and vomiting Medication List - Last Reconciled 07/29/23 by Aroldo Ambrocio MD albuterol sulfate 90 mcg/actuation 2 puffs inhalation Q6H PRN [IUD vaginal] HPI TV Consult/Transfer Niesha - HPI Details Start time: 10.00am, End time: 10.40am ?I spent 35 minutes speaking with the patient on the phone plus an additional 5 minutes reviewing and updating records for a total of 40 minutes HPI Comments History of Present Illness Details Wakes up: 10am, Sleeps: 2am Working days: 9am-3pm Would like to re-start the program today [facility] Medical History (Updated 07/29/23 @ 10:15 by Aroldo Ambrocio MD) Anxiety Asthma Back pain Depression Surgical History (Updated 06/02/23 @ 11:27 by Niesha Harrison PA-C) Hx of section Hx of cholecystectomy Family History Mother No problems noted. Father Diabetes Sister No problems noted. Sister No problems noted. Brother Hx of sleep apnea Brother Hx of sleep apnea Diabetes Sister Diabetes Sister No problems noted. Sister No problems noted. Sister No problems noted. Sister No problems noted. Sister No problems noted. Daughter No problems noted. Daughter No problems noted. Son No problems noted. Social History Alcohol intake: current Alcohol intake frequency: holidays/special occasions only Patient Tobacco Use Status: Never used Tobacco Assessment & Plan Assessment & Plan (1) Morbid obesity: Code(s): E66.01 - Morbid (severe) obesity due to excess calories Plan: 1.? Plan for lap sleeve gastrectomy. If diaphragmatic or ventral hernias are present at time of surgery, these will be repaired laparoscopically as well. Risks and complications were discussed in detail including possible conversion to an open procedure, anastomotic leak, bleeding requiring transfusion, small bowel obstruction, , DVT and pulmonary embolism, cardiac, or pulmonary complications, as senior care complications such as anastomotic ulcer, insufficient weight loss and vitamin deficiencies. I emphasized the importance of close follow-up, adherence to instructions and good communication. 2. Nutritional counseling. A) NON-WORKING DAYS: Start with 2 Pure protein (buy at [employer], [employer], [employer], [employer]) shakes (1/2 scoop in 8oz low fat unsweetened almond milk each) at 11am-1pm and 2pm-4pm, 1 protein bar (Zone Perfect protein bars, buy at [employer], ?[employer], [employer], or [employer]) at 5pm-7pm, dinner at 8pm (10 forks of protein and 10 forks of salad/vegetables) AND TWO more protein bars after dinner at 10pm-12am and 12am- 2am. B) WORKING DAYS: Start with ONE Pure protein (buy at [employer], [employer], [employer], [employer]) shake (1/2 scoop in 8oz low fat unsweetened almond milk each) at 4pm-6pm, dinner at 6pm (10 forks of protein and 10 forks of salad/vegetables), one more Pure protein shake with 1/2 scoop in 8oz almond milk at 8pm-10pm AND THREE more protein bars after dinner at 11pm-1am, 3am-5am and 6am-8am. Meal to include lean meat (beef, fish, pork, turkey, chicken), or persian yogurt, or egg whites, or beans with a salad with olive oil and fruits (berries, pears, apples, kiwi). Avoid salt, breads, potatoes, rice, pasta, desserts. 3. Each shake would be drunk slowly, like coffee in a period of 2 hours. 4. Cut each bar in 4 pieces and eat each piece in 30min ?to make each bar last 2 hours. 5. I emphasized the importance of measuring accurately the food portion and measure it when serving the food in plate 6. The meal portions include 10 full-size forks of meat and 10 full-size forks of salad. You always eat the meat portion but you can replace up to 5 forks for salad/vegetables with rice, potatoes or pasta, or a fruit ?if you like. The less you do it the better weight loss will be. 7. One full-size fork is what it can be scooped on the fork without falling aside and not what can be bit with the fork. Use regular forks like those you find in a typical restaurant. 8.? Please send me weight measurements as soon as possible and then once a week. Always include your diet and exercise plan. 9. Start walking outside daily, tracking calories with a goal of 300 calories per day, daily. Goal is to burn 2000 calories per week on active walking. 10. Alternatively purchase a stationary bike, elliptical or treadmill at home that can track calories. Let me know if you do so I can give you an exercise plan. 11.?It is important of avoiding and for at least 18 months postoperatively and has been discussed at the infosession. 12. Goal is to lose at least 1.5-2lbs per week 13. Goal to lose 10% of your weight before surgery, which is about 34lbs. Ultimate weight goal: 304lbs before surgery 14. Please follow the diet plan exactly without any change. If you don't like something about the plan or you feel hungry you need to communicate with me so I can help you revise the plan. You should not change the plan yourself. (2) Back pain: Code(s): M54.9 - Dorsalgia, unspecified (3) Depression: Code(s): F32.A - Depression, unspecified (4) Anxiety: Code(s): F41.9 - Anxiety disorder, unspecified (5) Asthma: Code(s): J45.909 - Unspecified asthma, uncomplicated Orders: Orders [place] upper GI w air Today E66.01 - Morbid (severe) obesity due to excess calories, F32.A - Depression, unspecified, F41.9 - Anxiety disorder, unspecified, J45.909 - Unspecified asthma, uncomplicated, M54.9 - Dorsalgia, unspecified US abdomen comp w elastography Today E66.01 - Morbid (severe) obesity due to excess calories, F32.A - Depression, unspecified, F41.9 - Anxiety disorder, unspecified, J45.909 - Unspecified asthma, uncomplicated, M54.9 - Dorsalgia, unspecified XR chest 2V Today E66.01 - Morbid (severe) obesity due to excess calories, F32.A - Depression, unspecified, F41.9 - Anxiety disorder, unspecified, J45.909 - Unspecified asthma, uncomplicated, M54.9 - Dorsalgia, unspecified Referrals Behavioral Health Referral E66.01 - Morbid (severe) obesity due to excess calories, F32.A - Depression, unspecified, F41.9 - Anxiety disorder, unspecified, J45.909 - Unspecified asthma, uncomplicated, M54.9 - Dorsalgia, unspecified Nutrition/Dietitian Referral E66.01 - Morbid (severe) obesity due to excess calories, F32.A - Depression, unspecified, F41.9 - Anxiety disorder, unspecified, J45.909 - Unspecified asthma, uncomplicated, M54.9 - Dorsalgia, unspecified Telehealth Telehealth Location of provider rendering services: practice address Location of patient: address on file Patient Identification confirmed using: Name, : Yes Telehealth method: voice only Patient verbally consented to treatment: Yes Patient verbally consented to billing insurance company: Yes Patient informed of any privacy concerns related to visit: Yes Minutes spent on Phone/Video with Pt.: 40 Coding Level of Care Code Tele Est Pt Level 4 (68849) Diagnoses Morbid obesity E66.01 Back pain M54.9 Depression F32.A Anxiety F41.9 Asthma J45.909 Time Spent (min) 40
[2023-07-29 11:25] VITALS: BMI 61.7
== END 2023-07-29 11:36 | disposition home or self-care (01) ==
PROVIDERS: PCP Internal Medicine; Visit Provider Surgery
DX: E66.01 Morbid (severe) obesity due to excess calories (principal); Z68.44 Body mass index [BMI] 60.0-69.9, adult
CPT/HCPCS: 99214

== ENCOUNTER → 2023-07-29 08:04 | Outpatient (BNVA) | payer OTHER, SELFPAY | PROVIDERS: PCP Internal Medicine; Visit Provider Surgery ==

== ENCOUNTER 2023-08-10 13:24 | Outpatient (AMB) | payer OTHER, SELFPAY ==
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
== END 2023-08-10 15:02 | disposition home or self-care (01) ==
LOC: HO.HBST 13:24
PROVIDERS: PCP Internal Medicine; Visit Provider Counselor Mental Health
DX: F43.23 Adjustment disorder with mixed anxiety and depressed mood (principal); F50.9 Eating disorder, unspecified
CPT/HCPCS: 90791

== ENCOUNTER → 2023-08-10 13:24 | Outpatient (BNVA) | payer OTHER, SELFPAY | PROVIDERS: PCP Internal Medicine; Visit Provider Counselor Mental Health ==

== ENCOUNTER 2023-08-11 10:43 | Outpatient (REF) | payer OTHER, SELFPAY ==
--- NOTE | ~2023-08-11 | XR_ITS ---
EXAMINATION: XR CHEST CLINICAL INFORMATION: Morbid obesity due to excess calories COMPARISON: None available. TECHNIQUE: 2 views of the chest were obtained. FINDINGS: There is no gross pneumothorax. Heart size is normal. Limited visualization due to body habitus. Low lung volumes. No pleural effusion. No focal consolidation to suggest pneumonia. XR/XR chest 2V IMPRESSION: No evidence of pneumonia.
[2023-08-11 12:07] LABS: Basophils Percent Auto 0.4 % (0-2); Eosinophils Absolute Auto 0.3 X10*3/uL (0.0-0.4); Eosinophils Percent Auto 3.7 % (0-4); Hematocrit 37.9 % (37.0-47.0); Hemoglobin 11.9 g/dl (12.0-16.0); Imm Gran Abs Auto 0.01 X10*3/uL (0.00-0.03); Imm Gran Pct Auto 0.1 % (0.0-0.4); Lymphocytes Absolute Auto 3.5 X10*3/uL (1.2-4.9); Lymphocytes Percent Auto 46.1 % (20-40); MANUAL DIFF FLAG NO; Mean Corpuscular HGB Conc 31.4 g/dl (31.0-35.0); Mean Corpuscular Hemoglobin 25.6 pg (27.0-33.0); Mean Corpuscular Volume 81.5 fL (80.0-98.0); Mean Platelet Volume 10.1 fL (9.4-12.3); Monocytes Absolute Auto 0.5 X10*3/uL (0.1-1.2); Monocytes Percent Auto 6.8 % (2-11); Neutrophils Absolute Auto 3.3 x10*3/uL (2.0-8.3); Neutrophils Percent Auto 42.9 % (45-73); Platelet Count 365 X10*3/uL (160-400); Red Blood Count 4.65 X10*6/uL (4.20-5.50); Red Cell Distribution Width 15.3 % (11.0-16.0); White Blood Count 7.6 X10*3/uL (4.8-10.8)
[2023-08-11 13:06] LABS: Estimated Average Glucose 100 mg/dL; Hemoglobin A1c % 5.1 % (<6.0)
[2023-08-11 13:14] LABS: Alanine Aminotransferase 14 U/L (0-31); Alkaline Phosphatase 79 U/L (39-117); Anion Gap 11 (12-20); Aspartate Amino Transferase 15 U/L (5-31); Bilirubin Total 0.2 mg/dL (0.0-1.0); Blood Urea Nitrogen 15 mg/dL (9-16); C Reactive Protein 2.53 mg/dL (< or = 0.50); Calcium 9.6 mg/dL (8.4-10.2); Carbon Dioxide 22 mmol/L (22-29); Chloride 108 mmol/L (96-108); Cholesterol 147 mg/dL (<200); Estimated Glomerular Filt Rate > 60; Glucose Random 84 mg/dL (60-115); HDL Cholesterol 43 mg/dL (>40); Iron 37 mcg/dL (30-160); LDL Cholesterol Calculated 76 mg/dL (<100); Percent Iron Saturation 13 % (15-50); Potassium 3.7 mmol/L (3.3-5.1); Sodium 137 mmol/L (135-145); Total Iron Binding Capacity 277 mcg/dL (228-428); Total Protein 8.3 g/dL (6.5-8.0); Triglycerides 143 mg/dL (<150); Unsaturated Iron Binding 240 ug/dL
[2023-08-11 13:25] LABS: Ferritin 32 ng/mL (10-122); Insulin 44 uU/mL (2-29); TSH reflex Free T4 4.84 uIU/mL (0.32-4.0); Vitamin D 25-OH Total 13.3 ng/mL (>30)
[2023-08-11 13:54] LABS: Folate 6.7 ng/mL (> or = 4.0); Vitamin B12 251 pg/mL (200-900)
[2023-08-11 14:48] LABS: Free T4 (Free Thyroxine) 0.82 ng/dL (0.71-1.85)
[2023-08-12 17:58] LABS: Calcium (PTHI) 9.4 mg/dL (8.6-10.2); PTHI 46 pg/mL (16-77)
[2023-08-14 18:28] LABS: Zinc 65 mcg/dL (60-130)
[2023-08-18 05:54] LABS: Vitamin B1 8 nmol/L (8-30)
[2023-08-18 17:14] LABS: Vitamin A 42 mcg/dL (38-98)
== END 2023-08-11 10:44 | disposition home or self-care (01) ==
LOC: HO.LAB 10:43
PROVIDERS: Visit Provider Physician Assistant
DX: Z01.818 Encounter for other preprocedural examination (principal); R40.0 Somnolence; R06.83 Snoring; E66.01 Morbid (severe) obesity due to excess calories; M54.9 Dorsalgia, unspecified; F32.A Depression, unspecified; F41.9 Anxiety disorder, unspecified; J45.909 Unspecified asthma, uncomplicated
CPT/HCPCS: 36415; 71046; 80053; 80061; 82306; 82607; 82728; 82746; 83036; 83525; 83540; 83970; 84425; 84439; 84443; 84590; 84630; 85025; 86140

== ENCOUNTER → 2023-08-28 08:08 | Outpatient (BNVA) | payer OTHER, SELFPAY | PROVIDERS: PCP Internal Medicine; Visit Provider Surgery ==

== ENCOUNTER → 2023-09-30 13:26 | Outpatient (BNVA) | payer OTHER, SELFPAY | PROVIDERS: PCP Internal Medicine; Visit Provider Dietitian, Registered | DX: E66.9 Obesity, unspecified (principal); Z68.44 Body mass index [BMI] 60.0-69.9, adult | CPT/HCPCS: 97802 ==

== ENCOUNTER 2023-10-13 07:58 | Outpatient (REF) | payer OTHER, SELFPAY ==
--- NOTE | ~2023-10-13 | FL_ITS ---
EXAMINATION: XR FLUOROSCOPY UPPER GI WITH AIR CLINICAL INFORMATION: Preoperative evaluation prior to bariatric surgery COMPARISON: None TECHNIQUE: Fluoroscopic air contrast upper GI examination was performed utilizing standard techniques with thin and thick barium and effervescent granules. Numerous spot images were obtained. FINDINGS: Dual and single contrast images of the esophagus demonstrate normal caliber, contour, and mucosal pattern. No evidence of stricture, mass, or ulcerations identified. Primary esophageal peristalsis was normal. Mild nonpropulsive tertiary contractions are noted. A small type I hiatal hernia is present. Gastroesophageal reflux is seen up to level of thoracic inlet. Dual contrast and single contrast images of the stomach demonstrated normal contour and mucosal pattern without evidence of mass, ulceration, or other abnormality. Contrast freely passed into the gastric antrum and duodenal bulb without delay. Single and air-contrast images of the duodenal bulb demonstrate no abnormality. The duodenal sweep has a normal appearance, course, and mucosal fold appearance. The imaged proximal jejunum has a normal fold pattern and caliber. FLUOROSCOPY TIME: 4 minutes 30 seconds Number of Spot Images: 10 Number of Cine: 7 DOSE AREA PRODUCT: [id number] uGy-m2 (microgray-meter squared) FL/FL upper GI w air IMPRESSION: 1. Mild esophageal dysmotility 2. Small type I hiatal hernia 3. Significant gastroesophageal reflux This procedure was performed by Emaon Castillo PA-C, and supervised by Dr. Mccullough
--- NOTE | ~2023-10-13 | US_ITS ---
EXAMINATION: US COMPLETE ABDOMEN WITH LIVER ELASTOGRAPHY CLINICAL INFORMATION: Obesity. COMPARISON: None available. TECHNIQUE: Real-time imaging of the abdominal viscera. Noninvasive ultrasound liver fibrosis assessment is performed using Bridgette ElastPQ point quantification shear wave elastography (2D-SWE) with a C5-2 MHz transducer. Multiple elastography samples are obtained. FINDINGS: PANCREAS: Normal. The visualized pancreatic head and body are normal in appearance. The remainder of the pancreas is obscured from visualization by the overlying bowel gas. ABDOMINAL AORTA: The proximal, middle, and distal aortic segments are normal in caliber. INFERIOR VENA CAVA: Visualized portions are normal. LIVER: There is hepatomegaly. The liver demonstrates normal contour and mildly increased echogenicity. No focal lesion or intrahepatic biliary duct dilatation. The right lobe measures 21.5 cm in length. The left lobe measures 15.8 cm in length. Portal flow is towards the liver (hepatopetal). Shear wave liver elastography median stiffness is 1.69 m/s (reference: normal median stiffness is 1.3 m/s or less). IQR/median stiffness to assess sampling precision is 0.10 (reference: good quality data set is IQR/median stiffness of 0.15 or less). GALLBLADDER: Surgically absent. COMMON BILE DUCT: Normal in caliber measuring 0.4 cm in diameter. RIGHT KIDNEY: Normal. No hydronephrosis. No renal calculi or focal parenchymal lesions. The kidney measures 12.4 cm in maximum dimension. LEFT KIDNEY: Normal. No hydronephrosis. No renal calculi or focal parenchymal lesions. The kidney measures 11.4 cm in maximum dimension. SPLEEN: Normal. The spleen measures 10.0 cm in maximum dimension. FREE FLUID: None. US/US abdomen comp w elastography IMPRESSION: 1. There is mild generalized increase in hepatic echotexture, consistent with fatty infiltration or hepatocellular disease. Please correlate clinically. No focal hepatic mass or intrahepatic biliary dilatation is seen. 2. Liver elastography: In the absence of other known clinical signs, measurements rule out compensated advanced chronic liver disease. If there are known clinical signs, further testing may be needed for confirmation. 3. The gallbladder is surgically absent. REFERENCE: Society of Radiologists in Ultrasound Liver Stiffness Thresholds (2020): LIVER STIFFNESS THRESHOLDS: *Liver Stiffness equal or less than 1.3 m/s: High probability of being normal. *Liver Stiffness less than 1.7 m/s: In the absence of other known clinical signs, rules out compensated advanced chronic liver disease. *Liver Stiffness 1.7-2.1 m/s: Suggestive of compensated advanced chronic liver disease but need further test for confirmation. *Liver Stiffness over 2.1 m/s: Rules in compensated advanced chronic liver disease. *Liver Stiffness over 2.4 m/s: Suggestive of clinically significant portal hypertension. QUALITY OF DATA SET: *IQR/Median value equal or less than 0.15 implies a quality data set. *IQR/Median value over 0.15 implies a poor quality data set. SIGNIFICANT CHANGE FROM PRIOR EXAM: Significant change if liver stiffness measurement is 10% or greater from prior exam. OTHER CONSIDERATIONS: The stage of liver fibrosis may be overestimated in the setting of acute hepatitis, liver inflammation, elevated liver function tests, hepatic vascular congestion, obstructive cholestasis, non-fasting state, and infiltrative diseases such as amyloidosis and lymphoma. In some patients with NAFLD, the liver stiffness thresholds for compensated advanced chronic liver disease may be lower. In causes other than viral hepatitis and NAFLD, liver stiffness thresholds are not well established.
== END 2023-10-13 07:59 | disposition home or self-care (01) ==
LOC: HO.US 07:58
PROVIDERS: PCP Internal Medicine; Visit Provider Surgery
DX: E66.01 Morbid (severe) obesity due to excess calories (principal); M54.9 Dorsalgia, unspecified; F32.A Depression, unspecified; F41.9 Anxiety disorder, unspecified; J45.909 Unspecified asthma, uncomplicated
CPT/HCPCS: 74246; 76705; 76981

== ENCOUNTER → 2023-10-13 08:00 | Outpatient (BNV) | payer OTHER, SELFPAY | PROVIDERS: PCP Internal Medicine; Visit Provider Radiology Diagnostic Radiology | DX: K21.9 Gastro-esophageal reflux disease without esophagitis (principal) | CPT/HCPCS: 74246 ==

== ENCOUNTER 2023-10-29 12:17 | Outpatient (AMB) | payer OTHER, SELFPAY ==
--- NOTE | 2023-10-29 12:12 | MHC.AMNUTRGE ---
Intake Intake Visit Reasons: (TV) F/U [facility] Allergies oxycodone Allergy (Unknown, Verified 07/29/23 10:12) nausea and vomiting HPI Nutrition Diet Assmnt Details pt reports going through some major life changes at the moment. needs to find a new place to live in a month or so. she has not made any positive changes to her eating habits per pt. She feels that right now is not the right time to pursue bariatric surgery . We discussed the need to take care of her health regardless and discussed the options for MWL Diagnosis Nutrition problem #1 not ready diet/lifestyle As related to (etiology) #1 unwilling to learn/apply As evidenced by (sign/symptom) #1 food recall Monitoring/Goals Nutrition problem monitoring total energy intake, level of knowledge/skill, total PRO intake and weight Outcome progress not met Learning/Education Readiness to learn good Stages of change pre-contemplation Most Recent Diabetes Results: Cholesterol 147 mg/dL (<200) 08/11/23 HDL Cholesterol 43 mg/dL (>40) 08/11/23 Triglycerides 143 mg/dL (<150) 08/11/23 Creatinine 0.88 mg/dL (0.5-1.4) 08/11/23 Blood Urea Nitrogen 15 mg/dL (9-16) 08/11/23 Sodium 137 mmol/L (135-145) 08/11/23 Potassium 3.7 mmol/L (3.3-5.1) 08/11/23 Chloride 108 mmol/L (96-108) 08/11/23 Carbon Dioxide 22 mmol/L (22-29) 08/11/23 Calcium 9.6 mg/dL (8.4-10.2) 08/11/23 AST 15 U/L (5-31) 08/11/23 ALT 14 U/L (0-31) 08/11/23 Total Protein 8.3 g/dL (6.5-8.0) H 08/11/23 Albumin 4.0 g/dL (3.5-5.0) 08/11/23 PFSH Medical History (Updated 07/29/23 @ 10:15 by Aroldo Ambrocio MD) Asthma Anxiety Depression Back pain Surgical History (Updated 06/02/23 @ 11:27 by Niesha Harrison PA-C) Hx of cholecystectomy Hx of section Family History Mother No problems noted. Father Diabetes Sister No problems noted. Sister No problems noted. Brother Hx of sleep apnea Brother Hx of sleep apnea Diabetes Sister Diabetes Sister No problems noted. Sister No problems noted. Sister No problems noted. Sister No problems noted. Sister No problems noted. Daughter No problems noted. Daughter No problems noted. Son No problems noted. Social History Alcohol intake: current Alcohol intake frequency: holidays/special occasions only Patient Tobacco Use Status: Never used Tobacco Assessment & Plan Assessment & Plan (1) Morbid obesity: Code(s): E66.01 - Morbid (severe) obesity due to excess calories Plan consider MWL. will add to list. Patient Instructions: we discussed using exercise as a stress outlet. also discussed taking care of her health during this stressful time. She is interested in MWL and would like to stop with [facility] Telehealth Telehealth Location of provider rendering services: practice address Location of patient: address on file Patient Identification confirmed using: Name, : Yes Telehealth method: video Patient verbally consented to treatment: Yes Patient verbally consented to billing insurance company: Yes Patient informed of any privacy concerns related to visit: Yes Minutes spent on Phone/Video with Pt.: 20 Coding Level of Care Code Nutr Indiv Subseq ([id number]) Diagnoses Morbid obesity E66.01 Time Spent (min) 20
== END 2023-10-29 13:38 | disposition home or self-care (01) ==
LOC: HO.HBS 12:17
PROVIDERS: PCP Internal Medicine; Visit Provider Dietitian, Registered
DX: E66.01 Morbid (severe) obesity due to excess calories (principal)

== ENCOUNTER → 2023-10-29 12:17 | Outpatient (BNVA) | payer OTHER, SELFPAY | PROVIDERS: PCP Internal Medicine; Visit Provider Dietitian, Registered | DX: E66.01 Morbid (severe) obesity due to excess calories (principal) | CPT/HCPCS: 97803 ==

== ENCOUNTER 2024-02-16 12:58 | Outpatient (AMB) | payer OTHER, SELFPAY ==
--- NOTE | 2024-02-16 13:01 | MHC.OFFVISWM ---
Intake VS Expanded 02/16/24 13:09 BP 110/59 L Blood Pressure Location Rt brachial Blood Pressure Position Sitting Pulse 89 Pulse Source Pulse Oximeter Temp 97.3 F Temperature Source Temporal Artery Scan Pulse Oximetry 96 Oxygen Delivery Method Room Air Height 5 ft 2 in Weight 340 lb BMI 62.2 Body Fat % 51.7 Body Fat Mass 175.8 Fat Free Mass 164.2 Visceral Fat Rating 21.0 Body Water % 34.7 Body Water Mass 118.0 Muscle Mass/Score 156.0 Basal Metabolic Rate/Score 2,431 Intake Visit Reasons: (OV) Switching - [facility] to MWL Search Advertising Strategist Required: No Allergies oxycodone Allergy (Unknown, Verified 02/16/24 13:13) nausea and vomiting Medication List - Last Reconciled 02/16/24 by AUGUST Pizano No Known Home Meds HPI HPI Comments History of Present Illness Details Her 28-year-old female returns to the office today in follow-up. She initially started the surgical weight loss pathway but had difficulties due to ongoing life circumstances including moving back into her mother's house with her 3 children and transportation issues with her automobile as well as having to work 2 jobs. She was considering transitioning to the medical weight loss pathway as it seemed too much to take on the surgical commitment at this time. She states that since October she has been going to the gym between 1 and 3 times per week. 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 Meal plan: isopure 1.5 scoops in 24 oz water 1 x per week, or 1 can tuna and 1 egg, crackers sandwich bologna and cheese or pastrami and cheese chips, popcorn, FF or tenders. salads cheese w chocolate covered raisins, nuts string cheese Drinking 96 oz water, 8 oz ros breanne 2 x per week, 8 oz cran juice 3-4 x per week Exercise: 1-3 x per week at , Treadmill 20 min, 30 min circuit room [facility] Medical History Asthma Anxiety Depression Back pain Surgical History Hx of cholecystectomy Hx of section Family History Mother No problems noted. Father Diabetes Sister No problems noted. Sister No problems noted. Brother Hx of sleep apnea Brother Hx of sleep apnea Diabetes Sister Diabetes Sister No problems noted. Sister No problems noted. Sister No problems noted. Sister No problems noted. Sister No problems noted. Daughter No problems noted. Daughter No problems noted. Son No problems noted. Social History Alcohol intake: current Alcohol intake frequency: holidays/special occasions only Patient Tobacco Use Status: Never used Tobacco Review of Systems Const All systems reviewed & are unremarkable except as noted in HPI and below Physical Exam Vital Signs: Last Vital Signs Temp 97.3 F 02/16/24 13:09 Pulse 89 02/16/24 13:09 BP 110/59 L 02/16/24 13:09 Pulse Ox 96 02/16/24 13:09 Oxygen Delivery Method Room Air 02/16/24 13:09 BMI result Body Mass Index 62.2 Const General: healthy appearing and no acute distress Resp Effort & Inspection: normal respiratory effort Auscultation: clear to auscultation bilaterally Cardio Rate: regular rate Rhythm: regular rhythm GI Auscultation: normal bowel sounds Extrem General: Yes normal to inspection Assessment & Plan Assessment & Plan (1) Morbid obesity: Code(s): E66.01 - Morbid (severe) obesity due to excess calories Plan: Given her significant instabilities in her life and ongoing issues, it was felt that she would best be suited with a meal plan and exercise plan that she can attempt to incorporate into her life as much as possible and when she is in a better place to be able to commit to herself, healthy life, healthy lifestyle (which I think will be in the next 2-3 months) she will contact the office for further appointments with an ultimate goal of pursuing a surgical weight loss intervention. Recommended meal plan includes: isopure protein shake with 1.5 scoops in 20 oz of water Zone perfect bar Ten forks of protein and 10 forks of vegetables x2 meals Avoiding all soda and juice Exercise plan: Encouraged to continue cardio at the gym with an ultimate goal of 300 calories burned per day, 7 days per week. Coding Level of Care Code Est Pt Level 3 (88726) Diagnoses Morbid obesity E66.01
[2024-02-16 13:09] VITALS: BP 110/59; PULSE 89; TEMP 36.3; O2SAT 96; BMI 62.2
== END 2024-02-16 13:46 | disposition home or self-care (01) ==
PROVIDERS: PCP Internal Medicine; Visit Provider Physician Assistant Surgical
DX: E66.01 Morbid (severe) obesity due to excess calories (principal); Z68.44 Body mass index [BMI] 60.0-69.9, adult
CPT/HCPCS: 99213

== ENCOUNTER → 2024-02-16 12:58 | Outpatient (BNVA) | payer OTHER, SELFPAY | PROVIDERS: PCP Internal Medicine; Visit Provider Physician Assistant Surgical | DX: E66.01 Morbid (severe) obesity due to excess calories (principal); Z71.3 Dietary counseling and surveillance; Z68.44 Body mass index [BMI] 60.0-69.9, adult | CPT/HCPCS: 99212 ==